=== PATIENT | female | born 1945 | race Caucasian/White ===

== ENCOUNTER 2016-05-06 15:33 | Inpatient (IN) | payer MEDICARE, OTHER, MEDICAID ==
[~2016-05-06] VITALS: Ht 167.6 cm; Wt 81.2 kg
--- NOTE | ~2016-05-06 | PN ---
PATIENT'S NAME: ROLANDO ROJAS [facility] AGE: 70 Y [address] ROOM: [place] [address] LOCATION: [facility] ADMIT DATE: 05/06/2016 Progress Notes DISCHARGE DATE: FAMILY PHYSICIAN: PHYSICIAN, UNKNOWN ATTENDING PHYSICIAN: Killian Ocampo DATE OF SERVICE: 05/13/2016 ADDENDUM: This patient had her thoracentesis uneventfully, approximately 800 mL of serosanguineous fluid was removed from her left chest, and her oxygenation is much better at this point. MD Isidra JEAN /[id number] d: 05/13/16 0611 t: 05/17/16 1826, PROGRESS NOTES
--- NOTE | ~2016-05-06 | PN ---
PATIENT'S NAME: ROLANDO ROJAS [facility] AGE: 70 Y [address] ROOM: [address] [address] LOCATION: GICU ADMIT DATE: 05/06/2016 Progress Notes DISCHARGE DATE: FAMILY PHYSICIAN: PHYSICIAN, UNKNOWN ATTENDING PHYSICIAN: Killian Ocampo DATE OF SERVICE: 05/11/2016 This patient, who had a bowel resection followed by a splenic rupture which was embolized, is doing fairly well. She has a wound infection of MRSA, open wound, on a VAC. She is on no antibiotics. She had speech therapy and was placed on a pureed diet. She is generally doing well. Her laboratory values: Chemistries have been reviewed, and they are reasonable. Her blood count shows a hematocrit of 24.4 and hemoglobin is 7.9. No white count today, and is generally doing satisfactorily. On examination, her abdomen is satisfactory, and she is doing quite well. Hopefully, she will tolerate her pureed diet well and her food management. We have decreased her fluids, and she is remobilizing her third space to her intravascular space. MD TONYA JEAN/deborah /[id number] d: 05/11/16 1237 t: 05/17/16 1821, PROGRESS NOTES
--- NOTE | ~2016-05-06 | PN ---
PATIENT'S NAME: ROLANDO ROJAS [facility] AGE: 70 Y [address] ROOM: [place] [address] LOCATION: [facility] [place] ADMIT DATE: 05/06/2016 Progress Notes DISCHARGE DATE: FAMILY PHYSICIAN: PHYSICIAN, UNKNOWN ATTENDING PHYSICIAN: Killian Ocampo CORRECTED PATIENT ACCOUNT INFORMATION 05/21/16 AO DATE OF SERVICE: 05/18/2016 This patient has tolerated a soft diet. She was transfused as well. Because of her left pleural effusion, Pulmonology was consulted, and attempts x2 at thoracentesis were unsuccessful. She is currently getting a CAT scan to see exactly the process going on in the left chest. MD TONYA JEAN/deborah /[id number] CORRECTED PATIENT ACCOUNT INFORMATION 05/21/16 AO d: t: 05/21/16 1116, PROGRESS NOTES
--- NOTE | ~2016-05-06 | PN ---
PATIENT'S NAME: ROLANDO ROJAS [facility] AGE: 70 Y [address] ROOM: [place] [address] LOCATION: [facility] [place] ADMIT DATE: 05/06/2016 Progress Notes DISCHARGE DATE: FAMILY PHYSICIAN: PHYSICIAN, UNKNOWN ATTENDING PHYSICIAN: Killian Ocampo DATE OF SERVICE: 05/17/2016 This patient is doing reasonably well. She still remains on a pureed diet. She has not required further thoracentesis. A chest x-ray will be checked tomorrow. She still is on a wound VAC and this will be checked. She is on antibiotics. She is being straight cathed twice a day. Her laboratory values and chest x-ray will be checked tomorrow, but she is improving perhaps her diet can be advanced as well. This will be discussed. MD TONYA JEAN/deborah /[id number] d: 05/17/161938 t: 06/26/16 1103, PROGRESS NOTES
--- NOTE | ~2016-05-06 | PN ---
PATIENT'S NAME: ROLANDO ROJAS [facility] AGE: 70 Y [address] ROOM: [place] [address] [place] [facility] [place]: 05/06/2016 Progress Notes DISCHARGE DATE: FAMILY PHYSICIAN: PHYSICIAN, UNKNOWN ATTENDING PHYSICIAN: Killian Ocampo DATE OF SERVICE: 05/17/2016 This patient is doing reasonably well. She still remains on a pureed diet. She has not required further thoracentesis. A chest x-ray will be checked tomorrow. She still is on a wound VAC and this will be checked. She is on antibiotics. She is being straight cathed twice a day. Her laboratory values and chest x-ray will be checked tomorrow, but she is improving perhaps her diet can be advanced as well. This will be discussed. MD TONYA JEAN/deborah /[id number] d: t: 05/20/16 0935, PROGRESS NOTES
--- NOTE | ~2016-05-06 | CON ---
PATIENT'S NAME: ROLANDO ROJAS [facility] AGE: 70 Y [address] ROOM: [place] [address] LOCATION: GICU ADMIT DATE: 05/06/2016 Consultation DISCHARGE DATE: FAMILY PHYSICIAN: PHYSICIAN, UNKNOWN ATTENDING PHYSICIAN: POORNIMA MACDONALD V DATE OF CONSULTATION: 05/06/2016 REFERRING PHYSICIAN: POORNIMA MACDONALD MD REQUESTING PHYSICIAN: Killian Ocampo MD. HISTORY OF PRESENT ILLNESS: The patient is a 70-year-old female who was urgently transferred to [facility] from [place]. The patient has undergone a small-bowel resection and lysis of adhesions on the of this month (4 days ago). Today, she was noted to be acutely hypotensive and anemic. A CAT scan of the abdomen showed a splenic rupture with large amount of bleeding. The patient was transferred to [facility], and en route, developed hemorrhagic shock. Subsequent to the transfer, the patient was evaluated in the ER and was urgently taken to Interventional Radiology where she has undergone a successful embolization of a bleeding splenic vessel. She was transferred to the intensive care unit thereafter. When I evaluated the patient, she again developed hypotension with blood pressures in 70s to 80s systolic over 40s to 50s diastolic. She is complaining of pain and is still quite sedated from the procedure. REVIEW OF SYSTEMS: Cannot be obtained due to altered mental status. I did review chart accompanying the patient. PAST MEDICAL HISTORY: Significant for chronic pain, seizure disorder. SOCIAL HISTORY: Cannot be obtained due to altered mental status. CURRENT MEDICATIONS: Being compiled. FAMILY HISTORY: Cannot be obtained due to altered mental status. PHYSICAL EXAMINATION: PATIENT'S NAME: ROLANDO ROJAS [facility] AGE: 70 Y [address] ROOM: [place] [address] LOCATION: [facility] ADMIT DATE: 05/06/2016 Consultation DISCHARGE DATE: FAMILY PHYSICIAN: PHYSICIAN, UNKNOWN ATTENDING PHYSICIAN: POORNIMA MACDONALD V VITAL SIGNS: After beginning Levophed and normal saline, at this point, her blood pressure is 130s/70s, heart rate is in the 90s, and saturating 100%. GENERAL: Appears as a chronically ill, malnourished, elderly female, in mild distress due to pain. HEENT: Reveals a nasogastric tube. LYMPHATIC: Exam shows no cervical lymphadenopathy. ENDOCRINE: Exam shows no thyromegaly. LUNGS: Clear to auscultation with some trace crackles at the bases bilaterally. HEART: Rate is regular with no appreciable murmurs, gallops, or rubs. GI: Exam reveals a large, dehisced wound in mid abdomen, which is clearly infected. Diminished bowel sounds. VASCULAR: Exam reveals 1+ lower extremity edema and 1+ pedal pulses with some diminished capillary refill. NEUROLOGIC: Grossly nonfocal exam. LABORATORY DATA: Her most recent ABG shows pH 7.32, pCO2 of 44, PO2 of 102, bicarb of 22.7, and saturating 97%. Her potassium is 6.1, calcium 7.2, albumin 1.7, total protein 4.4, and AST 46. White count is 23.3, hemoglobin is 13.8 from 7.5 initially, and she has a 20% bands. IMPRESSION AND RECOMMENDATIONS: This is a critically ill 70-year-old female. Individual problems to be addressed as follows: 1. Hypotension. At this point, we started the patient on Levophed and we will continue hydrating her. We will draw blood cultures. We will monitor her H and H serially to assure that this is not continuation of her hemorrhage versus potential sepsis. 2. Poly-bacterial wound infection as per review of cultures from the outside facility. I think the patient will benefit from broad-spectrum antibiotics as well. We will draw blood cultures as well. 3. Surgical wound dehiscence. We will defer to General Surgery. 4. Goals of care. We will have to address that with the family as I think at this point the prognosis is quite guarded. 5. Questionable history of chronic pain and seizures. 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 6. Pain control has been ordered by Dr. Ocampo. 7. Hyperkalemia: We will insulin and d50 and IVF and follow her potassium Additional management will depend on clinical course. Total time dedicated to the management of this patient is 45 minutes. PATIENT'S NAME: ROLANDO ROJAS [facility] AGE: 70 Y [address] ROOM: [place] [address] LOCATION: [facility] ADMIT DATE: 05/06/2016 Consultation DISCHARGE DATE: FAMILY PHYSICIAN: PHYSICIAN, YULIYA ATTENDING PHYSICIAN: POORNIMA MACDONALD V MD TAZ HE/deborah /[id number] d: 05/07/16 0043 t: 05/13/16 1915, CONSULTATION REPORT
--- NOTE | ~2016-05-06 | OR ---
PATIENT'S NAME: ROLANDO ROJAS [facility] AGE: 70 Y [address] ROOM: [address] [address] [place] [facility] [place]: 05/06/2016 OR/Procedure Report DISCHARGE DATE: FAMILY PHYSICIAN: PHYSICIAN, UNKNOWN ATTENDING PHYSICIAN: Killian Ocampo SURGEON: Jose Knapp MD MANAGEMENT LEAD: DATE OF PROCEDURE: 05/06/2016 CORRECTED PATIENT ACCOUNT INFORMATION 05/21/16 PROCEDURE PERFORMED: Insertion of a right internal jugular venous catheter. PREPROCEDURE DIAGNOSES: 1. Splenic rupture. 2. Hypovolemic shock. 3. Inadequate venous access. POSTPROCEDURE DIAGNOSES: 1. Splenic rupture. 2. Hypovolemic shock. 3. Inadequate venous access. DESCRIPTION OF PROCEDURE: The patient is a 70-year-old female who was admitted to our facility in hypovolemic shock secondary to a ruptured spleen. The patient had poor intravenous access. In order to facilitate adequate resuscitation, additional intravenous access is required. The patient was placed in a slight Trendelenburg position with her head turned to the left. A Site-Rite monitor was used to identify the course of the right internal jugular vein. After appropriate skin markings were made, the skin was prepped and draped in the usual sterile fashion using full barrier precautions. An 18-gauge seeker needle was then used to cannulate the right internal jugular vein on the first attempt. A guidewire was introduced through the needle, and the needle removed. After creation of the small stab incision, a dilator was passed over the guidewire, which was then followed by the passage of a 16 cm, 8.5-Nepali, 4-lumen catheter. The catheter was inserted to the depth of its hub and the guidewire removed. The lumens of the catheter were capped and flushed. The catheter was sutured into place, and a sterile dressing applied. The patient tolerated the procedure well. JOSE KNAPP MD MWS/modl PATIENT'S NAME: ROLANDO ROJAS [facility] AGE: 70 Y [address] ROOM: [id number] [place], [place] [address] [place] [facility] [place]: 05/06/2016 OR/Procedure Report DISCHARGE DATE: FAMILY PHYSICIAN: PHYSICIAN, YULIYA ATTENDING PHYSICIAN: Killian Ocampo /[id number] CORRECTED PATIENT ACCOUNT INFORMATION 05/21/16o d: 05/07/16 1623 t: 05/30/16 1045, OPERATIVE SUMMARY
--- NOTE | ~2016-05-06 | PN ---
PATIENT'S NAME: ROLANDO ROJAS [facility] AGE: 70 Y [address] ROOM: [place] [address] LOCATION: GICU ADMIT DATE: 05/06/2016 Progress Notes DISCHARGE DATE: FAMILY PHYSICIAN: PHYSICIAN, UNKNOWN ATTENDING PHYSICIAN: Killian Ocampo DATE OF SERVICE: 05/11/2016 This is a patient who had a small bowel resection followed by embolization for a splenic rupture. She currently is doing reasonably well. She does have a wound infection of MRSA, on her back DICTATION ENDS HERE MD TONYA JEAN/deborah /[id number] d: 05/11/16 1110 t: 05/17/16 1818, PROGRESS NOTES
--- NOTE | ~2016-05-06 | PN ---
PATIENT'S NAME: ROLANDO ROJAS [facility] AGE: 70 Y [address] ROOM: [place] [address] LOCATION: [place] ADMIT DATE: 05/06/2016 Progress Notes DISCHARGE DATE: FAMILY PHYSICIAN: PHYSICIAN, UNKNOWN ATTENDING PHYSICIAN: Killian Ocampo DATE OF SERVICE: 06/02/2016 This patient is doing reasonably well. She did have a low-grade fever. She still has a leukocytosis, low-grade. Her chest tube on suction is draining a modest amount. Determination will be made by Dr. Osman about this. A chest x-ray was taken, which has been reviewed, is very similar. Her wound VAC will be changed tomorrow. I hope to look at that. She is on no antibiotics. She still has MRSA screening and is reasonably stable, although she did have some more abdominal pain yesterday. MD TONYA JEAN/deborah /[id number] d: 06/02/16 0845 t: 06/26/16 1120, PROGRESS NOTES
--- NOTE | ~2016-05-06 | CON ---
PATIENT'S NAME: ROLANDO ROJAS [facility] AGE: 70 Y [address] ROOM: [address] [address] [place] [facility] [place] ADMIT DATE: 05/06/2016 Consultation DISCHARGE DATE: FAMILY PHYSICIAN: PHYSICIAN, UNKNOWN ATTENDING PHYSICIAN: Killian Ocampo DATE OF CONSULTATION: 06/05/2016 REFERRING PHYSICIAN: POORNIMA MACDONALD MD CARDIOLOGY CONSULT REASON FOR CARDIOLOGY CONSULTATION: Atrial fibrillation. HISTORY OF PRESENT ILLNESS: This is a 70-year-old female, who initially presented to [facility] from [place], [place] with hemorrhagic shock. She underwent a small-bowel resection, is currently postop day greater than 30 from that visit. She experienced hemorrhage from a splenic rupture and is currently status post an embolization. During her hospitalization, she also developed a pleural effusion followed by a failed thoracentesis and then left hemithorax which needed left thoracoscopy and pleural effusion drainage by chest tube. She is currently being treated for sepsis secondary to UTI by the Hospitalist Service. 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 Her rates are marginally controlled in the 80 to 90 beats per minute range. She does have a previous history of paroxysmal atrial fibrillation and was also previously on Eliquis. Her normal perl programmer is Dr. Fahad Morin at [facility] and states she saw him in February 2016. She does have complaints of palpitations and dizziness. She denies chest pain or shortness of breath. She also denies nausea or vomiting, but she does admit to occasional dry heaves. Overall, she appears comfortable in her chair and in no acute distress. PAST MEDICAL HISTORY: The patient is unsure of her full medical history. The following list of history is from chart review which includes hypertension, pulmonary embolus, paroxysmal atrial fibrillation, incontinence, and seizure disorder. PAST SURGICAL HISTORY: Her chart review shows a past surgical history including a vaginal mesh, right knee replacement, cholecystectomy, and hysterectomy. FAMILY HISTORY: The patient is unsure of any notable family health history. PATIENT'S NAME: ROLANDO ROJAS [facility] AGE: 70 Y [address] ROOM: [address] [address] LOC[place] [facility] [place] ADMIT DATE: 05/06/2016 Consultation DISCHARGE DATE: FAMILY PHYSICIAN: PHYSICIAN, UNKNOWN ATTENDING PHYSICIAN: Killian Ocampo SOCIAL HISTORY: The patient denies ever using tobacco. She also denies alcohol or illicit drug use. CURRENT MEDICATIONS: 1. Zosyn 3.375 g IV every 8 hours. 2. Bystolic 5 mg p.o. daily. 3. Amiodarone 200 mg p.o. daily. 4. Florastor 250 mg p.o. twice daily. 5. Keppra 500 mg p.o. twice daily. 6. Levothyroxine 50 mcg p.o. daily. 7. Neurontin 300 mg p.o. twice daily. 8. Protonix 40 mg p.o. twice daily. 9. Remeron 15 mg p.o. daily in the evening. 10. Sanctura 20 mg p.o. daily. 11. Heparin 5000 units subcutaneous twice daily. 12. NovoLog subcu on a mild sliding scale per a.c. and h.s. Accu-Cheks. MEDICATION ALLERGIES: 1. Barbiturates. 2. Sulfa causing nausea. 3. Phenobarbital causing rash. 4. Morphine causing anaphylaxis. REVIEW OF SYSTEMS: Pertinent positive review of systems listed in HPI. All other review of systems evaluated and negative. PHYSICAL EXAMINATION: VITAL SIGNS: Temperature 98.9, pulse 98, respirations 20, blood pressure 96/62, and O2 saturation 98% on room air. The patient weighs 81.1 kg. SKIN: [place], warm, and dry. EYES: Sclerae clear. No xanthelasmas. ENT: Oral mucosa is pink and moist. No jugular venous distention. No carotid bruits. CHEST: Respirations are even and unlabored. Lung sounds are clear to bilateral upper lobes. They are diminished to bilateral lower lobes. HEART: Irregular rate and rhythm. Normal S1, S2. No murmurs, rubs, or gallops. ABDOMEN: Soft nontender. MUSCULOSKELETAL: Equal muscle strength to upper and lower extremities bilaterally against resistance. EXTREMITIES: Peripheral pulses palpable. No clubbing or cyanosis noted. Does have mild lower extremity edema present. PSYCH: Alert and oriented. Mood and affect are appropriate. PATIENT'S NAME: ROLANDO ROJAS [facility] AGE: 70 Y [address] ROOM: [place] [address] LOC[place]: [facility] [place] ADMIT DATE: 05/06/2016 Consultation DISCHARGE DATE: FAMILY PHYSICIAN: PHYSICIAN, UNKNOWN ATTENDING PHYSICIAN: Killian Ocampo IMPRESSION AND PLAN: Per Dr. Jacque Coronado: 1. Paroxysmal atrial fibrillation. The patient is currently in atrial fibrillation. She has a previous history of anticoagulation with Eliquis, but we will not restart her anticoagulation due to her acute blood loss anemia. We will try and retrieve her old cardiac records from Dr. Fahad Morin's office for a full review. 2. Loculated pleural effusion. 3. Status post bowel resection. 4. Splenic hemorrhage, status post embolization. 5. Sepsis secondary to urinary tract infection, currently under the care of the Hospitalist Service. 6. Moderate pulmonary hypertension with an RVSP of 46 mmHg. The patient's echocardiogram shows a left ventricular ejection fraction of 60%. Her EKG shows atrial fibrillation with a right bundle-branch block. Her atrial fibrillation rates are currently well controlled, and once again, we will not start her on anticoagulation due to anemia and acute blood loss anemia. No other active cardiac workup necessary at this time. We will review her previous cardiac records and continue to monitor, evaluate, and treat as appropriate. Thank you for this consult. Thank you for allowing [facility] to interact in the care of the patient. MADELIN RESENDIZ APRN FOR MD KIM SIMS/deborah /[id number] d: 06/06/16 0010 t: 06/10/16 1132, CONSULTATION REPORT
--- NOTE | ~2016-05-06 | PN ---
PATIENT'S NAME: ROLANDO ROJAS [facility] AGE: 70 Y [address] ROOM: [address] [address] [place] [facility] [place]: 05/06/2016 Progress Notes DISCHARGE DATE: FAMILY PHYSICIAN: PHYSICIAN, UNKNOWN ATTENDING PHYSICIAN: Killian Ocampo DATE OF SERVICE: 05/18/2016 This patient is doing reasonably well. She still has MRSA, still on a wound VAC. She is being straight cathed b.i.d. She is on Maxipime. I checked her chest x-ray, which showed a record essence of fluid in her left chest and the cat operator will re-evaluate this. Her pulse oximetries have been reasonable. She has been on 1-2 L per nasal cannula, but I want to see what the cat operator to see if she needs another thoracentesis. Also, she has been doing well with a pureed diet, but it is not very palatable, and I have asked the speech therapist to see if she could be advanced, and indeed, they are comfortable with this and she is going to be advanced to a surgical soft diet. Her wound VAC is not putting out much, it is 125 and she has been afebrile. Her laboratory values are reasonable in terms of her chemistries. Her white count is 13.5, her hemoglobin is 7.7, in that respect and I am going to give her unit of blood, followed by unloading with Lasix. She has a mild leukocytosis which will be watched, so therefore advance her to a soft diet, transfuse 1 unit of blood, and have the cat operator re-evaluate in terms of her left pleural effusion. MD TONYA JEAN/deborah /[id number] d: 05/18/16 1102 t: 06/26/16 1105, PROGRESS NOTES
--- NOTE | ~2016-05-06 | OR ---
PATIENT'S NAME: ROLANDO ROJAS [facility] AGE: 70 Y [address] ROOM: [address] [place], [place] [address] LOCATION: GICU ADMIT DATE: 05/06/2016 OR/Procedure Report DISCHARGE DATE: FAMILY PHYSICIAN: PHYSICIAN, UNKNOWN ATTENDING PHYSICIAN: Killian Ocampo SURGEON: Manuel Spicer MD CHECKOUT OPERATOR: DATE OF PROCEDURE: 05/06/2016 ADDENDUM: This is an addendum to the anesthesia record. The patient is a 70- year-old female who was transferred from [place], [place], with a diagnosis of a ruptured spleen. In transport from [place], the patient's systolic blood pressures were in the 50s. On arrival to the emergency room, the patient was found to be hypotensive and pale, but conscious and complaining of pain. The patient did have a small-bore right subclavian catheter present through which blood was being given. Efforts were made at that point in time to increase the rate of blood and fluid administration. Thus, a Level 1 transfuser was employed. With vigorous packed red blood cell administration, the patient did finally obtain an adequate mean arterial pressure. The patient remained conscious during this time, complaining of pain. The decision was made at that time, given her history of having had a recent bowel resection, that an attempt should be made at interventional radiologic therapy as opposed to going to the operating room for an open procedure. Given the difficulty we were having in resuscitating the patient through the lines that were present, however, we decided to take the patient initially to the operating room for placement of adequate lines and stabilization. The patient was subsequently transferred to the operating room, and a right internal jugular vein catheter placed as well as a left radial arterial line. Once an adequate blood pressure was assured, the patient was transferred to the interventional radiology suite where she was to undergo splenic infarction by Dr. Srikanth Pennington. The patient maintained relatively stable vital signs with the administration of fluid and packed red cells and generated enough blood pressure to permit the administration of analgesics. During the course of her procedure, the patient was given 25 mg of ketamine as well as 75 mg of fentanyl. Due to the degree of her metabolic acidosis, she was also treated with 50 mL of 8.4% sodium bicarbonate. The patient tolerated the radiologic procedure well, and at the successful completion of the procedure, the patient was transferred to the intensive care unit. During the course of her resuscitation and the interventional radiologic procedure, the patient received 6 units of emergency-released packed red blood cells as well as approximately 1500 mL of crystalloid. The drugs administered are as noted above. The patient was transferred to the care of the intensive care unit with a blood pressure of 115/75 and a heart rate of 82. She was conscious and much more comfortable than she had been on her arrival. The time spent with PATIENT'S NAME: ROLANDO ROJAS [facility] AGE: 70 Y [address] ROOM: [place] [address] LOCATION: [facility] ADMIT DATE: 05/06/2016 OR/Procedure Report DISCHARGE DATE: FAMILY PHYSICIAN: PHYSICIAN, UNKNOWN ATTENDING PHYSICIAN: Killian Ocampo the patient was from 1535 hours to 1813 hours. Vital signs are in the chart for review. MD GUERITA FERRER/deborah /[id number] d: 05/07/165 t: 05/09/16 1514, OPERATIVE SUMMARY
--- NOTE | ~2016-05-06 | PN ---
PATIENT'S NAME: ROLANDO ROJAS [facility] AGE: 70 Y [address] ROOM: [place] [address] [place] [facility] [place]: 05/06/2016 Progress Notes DISCHARGE DATE: FAMILY PHYSICIAN: PHYSICIAN, UNKNOWN ATTENDING PHYSICIAN: Killian Ocampo DATE OF SERVICE: 05/19/2016 This patient is doing fair. Her biggest problem is with her pleural effusion of the left chest. She has a low-grade fever. Chest x-ray done yesterday showed fluid in the left chest. The tie in machine operator attempted to do thoracentesis x2 and only got blood. CT scan of her chest was taken, which showed a large left pleural effusion increased in volume with consolidation and a small right pleural effusion also. There is no pneumothorax, but there is a mild midline shift to the right. She does have residual fluid around her spleen secondary to her splenic rupture treated by embolization. Her pulse oximetries have varied, but have been better than before but not always consistent. She is tolerating her soft diet. She does not have a great appetite. She was transfused as well. Her laboratory data pending at this time. After the transfusion, major concern is her pulmonary issue. I have asked, Dr. Osman, the cardiothoracic surgeon, to evaluate her left chest for his opinion and also I have asked radiology for their opinion if they could guide a thoracentesis catheter into her left pleural space for adequate drainage, this seems to be her major concern at this time. MD TONYA JEAN/deborah /[id number] d: t: 05/20/16 1124, PROGRESS NOTES
--- NOTE | ~2016-05-06 | ER ---
PATIENT'S NAME: ROLANDO ROJAS [facility] AGE: 70 Y [address] ROOM: [address] [address] LOCATION: [facility] ADMIT DATE: 05/06/2016 ER/Outpatient Report DISCHARGE DATE: FAMILY PHYSICIAN: PHYSICIAN, UNKNOWN ATTENDING PHYSICIAN: POORNIMA MACDONALD V Time of Arrival: 1536 hours. Time of Evaluation: 1536 hours. IDENTIFICATION: A 70-year-old female. CHIEF COMPLAINT: Spontaneous spleen rupture. HISTORY OF PRESENT ILLNESS: The patient is a 70-year-old female, who was to be direct admitted to ICU per Dr. Ocampo and Dr. Macdonald. The patient actually was hemodynamically unstable with pressures in the 50s during flight, so Dr. Ocampo wanted her to be brought to the emergency room. Dr. Spicer also was present. The patient is a 70-year-old female, status post colon resection, I believe, on the in [place] per Dr. Ocampo who had been recovering nicely until today, she developed abdominal pain and just did not feel right. She had hypotension, which only worsened. The CT scan revealed a spontaneous rupture of her spleen, so then they did contact Dr. Ocampo and she was to be admitted by Dr. Ocampo. ALLERGIES: UNKNOWN. CURRENT MEDICATIONS: Reviewed. Please refer to the MAR. We did call to verify that she has not been taking her Eliquis since the April 26, 2016. MEDICAL PROBLEMS: I really do not have access to all of her medical records, but she is on chronic anticoagulation. At this time, I am not able to really tell what she takes that for. I briefly evaluated the patient with Dr. Spicer and Dr. Ocampo. Blood pressures varied between a mean of 65 and a blood pressure of 111. Most of the time, we only had a mean and no active blood pressure. The patient is moaning and complaining of abdominal pain. She is somewhat short of breath, but her sats are 99% on 4 L per nasal cannula. Heart rate is in the 80s. ABDOMEN: Distended. Retention sutures are in place. LUNGS: Diminished in the bases. PATIENT'S NAME: ROLANDO ROJAS [facility] AGE: 70 Y [address] ROOM: [address] [address] LOCATION: [facility] ADMIT DATE: 05/06/2016 ER/Outpatient Report DISCHARGE DATE: FAMILY PHYSICIAN: PHYSICIAN, UNKNOWN ATTENDING PHYSICIAN: POORNIMA MACDONALD V LABORATORY DATA: Lab work was obtained to include a hemoglobin of 7.5, hematocrit 23.2, platelets 229. She had a hemoglobin of 9.1 at 10:30 a.m. and hemoglobin of 10 at 3:30 a.m. Massive transfusion protocol was ordered immediately on arrival of the patient. 4 units of emergency packed red blood cells were available in the trauma room. The patient was on her third unit of packed red blood cells on 3 L of normal saline. I did order tranexamic acid with the massive transfusion protocol, Dr. Spicer though withheld that at that time it did arrive. INR 1.1, fibrinogen 296, PTT 34. PLAN: After a brief stabilization in the trauma room, the decision was made to go to the operating room for arterial lines per Dr. Spicer and then to Interventional Radiology for Dr. Srikanth Pennington. The patient remained in very guarded condition, but was hemodynamically improved when transferred from the trauma room. The patient arrived to the emergency room at 1536 hours and departed the emergency room at 1614 hours. 30 minutes of critical care was provided with this patient. YENNY BOCANEGRA MD CAR/modl /[id number] d: 05/07/16 0044 t: 05/07/16 0923, OUTPATIENT REPORT
--- NOTE | ~2016-05-06 | PN ---
PATIENT'S NAME: ROLANDO ROJAS [facility] AGE: 70 Y [address] ROOM: [place] [address] LOCATION: [facility] [place] ADMIT DATE: 05/06/2016 Progress Notes DISCHARGE DATE: FAMILY PHYSICIAN: PHYSICIAN, UNKNOWN ATTENDING PHYSICIAN: Killian Ocampo DATE OF SERVICE: 05/31/2016 This patient remains with MRSA, has a wound VAC in. She had a thoracoscopy and has a chest tube in now to suction. It is not draining a great deal. She is tolerating her diet, but she has had watery diarrhea. Her last C diff was negative, and another one was ordered. A chest x-ray taken today shows consolidation in the left lower pleural space. She will continue to be treated as such. Hopefully, soon, that chest tube can be removed. MD TONYA JEAN/deborah /[id number] d: 05/31/16 1847 t: 06/26/16 1115, PROGRESS NOTES
--- NOTE | ~2016-05-06 | PN ---
PATIENT'S NAME: ROLANDO ROJAS [facility] AGE: 70 Y [address] ROOM: [address] [address] [place] [facility] [place]: 05/06/2016 Progress Notes DISCHARGE DATE: FAMILY PHYSICIAN: PHYSICIAN, UNKNOWN ATTENDING PHYSICIAN: Killian Ocampo DATE OF SERVICE: 06/01/2016 This patient is doing reasonably well. Her diarrhea has decreased a bit. Her chest tube drainage has been modest. This will be evaluated by Dr. Osman. I have reviewed her chest x-ray from yesterday which showed some consolidation in the left chest. Her examination is stable. Her wound VAC is decreasing in amount. I hope to observe that when it gets changed. Her laboratory values have been reviewed. She has a slight leukocytosis. MD TONYA JEAN/deborah /[id number] d: 06/01/16 0810 t: 06/26/16 1118, PROGRESS NOTES
--- NOTE | ~2016-05-06 | PN ---
PATIENT'S NAME: ROLANDO ROJAS [facility] AGE: 70 Y [address] ROOM: [id number] [address] LOCATION: [facility] ADMIT DATE: 05/06/2016 Progress Notes DISCHARGE DATE: FAMILY PHYSICIAN: PHYSICIAN, UNKNOWN ATTENDING PHYSICIAN: Killian Ocampo DATE OF SERVICE: 05/12/2016 HISTORY OF PRESENT ILLNESS: This is a patient who had a bowel resection at another institution. She came here with a ruptured spleen, which was embolized. She has MRSA wound infection with superficial opening of her wound on a VAC. She is on no antibiotics. She did have a problem with fluid overload in which she is diuresing well. She had a speech evaluation and now is on a pureed diet. She generally is doing well. LABORATORY VALUES: Show slight hypokalemia probably secondary to diuresis. She has no azotemia. Her white count is normal. Her hemoglobin is a tad low in the high 7s, that will need to be watched. She may require transfusion. Platelet count is generally satisfactory. REVIEW OF SYSTEMS: Remainder of the review of systems are surgically noncontributory. PHYSICAL EXAMINATION: VITAL SIGNS: Afebrile. Vital signs stable. GENERAL: Color good and comfortable. CHEST: Clear. ABDOMEN: Soft. Good bowel sounds. Wound VAC in place. This will be changed tomorrow. PLAN: Watch her H and H, supplement her potassium, if it goes any lower. Continue with pureed diet and possibly increase and check her wound when the VAC comes off tomorrow. MD TONYA JEAN/deborah /[id number] d: 05/12/167 t: 05/17/16 1823, PROGRESS NOTES
--- NOTE | ~2016-05-06 | PN ---
PATIENT'S NAME: ROLANDO ROJAS [facility] AGE: 70 Y [address] ROOM: [place] [address] [place] [facility] [place]: 05/06/2016 Progress Notes DISCHARGE DATE: FAMILY PHYSICIAN: PHYSICIAN, UNKNOWN ATTENDING PHYSICIAN: Killian Ocampo CORRECTED PATIENT ACCOUNT INFORMATION 05/21/16 AO DATE OF SERVICE: 05/18/2016 This patient has tolerated a soft diet. She was transfused as well. Because of her left pleural effusion, Pulmonology was consulted, and attempts x2 at thoracentesis were unsuccessful. She is currently getting a CAT scan to see exactly the process going on in the left chest. MD TONYA JEAN/deborah /[id number] CORRECTED PATIENT ACCOUNT INFORMATION 05/21/16 AO d: 05/18/161811 t: 06/26/16 1111, PROGRESS NOTES
--- NOTE | ~2016-05-06 | PN ---
PATIENT'S NAME: ROLANDO ROJAS [facility] AGE: 70 Y [address] ROOM: [address] [address] [place] [facility] [place] DATE: 05/06/2016 Progress Notes DISCHARGE DATE: FAMILY PHYSICIAN: PHYSICIAN, UNKNOWN ATTENDING PHYSICIAN: Killian Ocampo DATE OF SERVICE: 05/18/2016 This patient is doing reasonably well. She still has MRSA, still on a wound VAC. She is being straight cathed b.i.d. She is on Maxipime. I checked her chest x-ray, which showed a record essence of fluid in her left chest and the head scorer will re-evaluate this. Her pulse oximetries have been reasonable. She has been on 1-2 L per nasal cannula, but I want to see what the head scorer to see if she needs another thoracentesis. Also, she has been doing well with a pureed diet, but it is not very palatable, and I have asked the speech therapist to see if she could be advanced, and indeed, they are comfortable with this and she is going to be advanced to a surgical soft diet. Her wound VAC is not putting out much, it is 125 and she has been afebrile. Her laboratory values are reasonable in terms of her chemistries. Her white count is 13.5, her hemoglobin is 7.7, in that respect and I am going to give her unit of blood, followed by unloading with Lasix. She has a mild leukocytosis which will be watched, so therefore advance her to a soft diet, transfuse 1 unit of blood, and have the head scorer re-evaluate in terms of her left pleural effusion. MD TONYA JEAN/deborah /[id number] d: t: 05/20/16 0955, PROGRESS NOTES
--- NOTE | ~2016-05-06 | DS ---
PATIENT'S NAME: ROLANDO ROJAS [facility] AGE: 70 Y [address] ROOM: [place] [address] [place]ATION: [facility] [place] ADMIT DATE: 05/06/2016 Discharge Summary DISCHARGE DATE: 06/07/2016 FAMILY PHYSICIAN: Physician, Unknown ATTENDING PHYSICIAN: Killian Ocampo DISCHARGE DIAGNOSES: 1. Hemorrhagic shock. 2. Sepsis, Klebsiella urinary tract infection. 3. MRSA in abdominal wound. 4. Splenic rupture, status post embolization. 5. Open abdominal wound with wound VAC. 6. Acute blood loss anemia. 7. Hypokalemia. 8. Paroxysmal atrial fibrillation with episode of atrial fibrillation with rapid ventricular response. 9. Physical deconditioning. 10. Long-term anticoagulation. 11. Acute hypoxic respiratory failure. 12. Left pleural effusion, status post chest tube. 13. Left lower lobe pneumonia. 14. Generalized weakness. 15. Diarrhea, Clostridium difficile negative. HOSPITAL COURSE: Please refer to interim discharge summary as dictated by Cassie James on 05/27/2016. Briefly, this discharge summary will cover the events from 05/27/2016 until the day of discharge on 06/07/2016. The patient continued to progress with physical therapy and occupational therapy. She was noted to have diarrhea. Her stool softeners were held. Her C. diff was checked twice, both of which were negative. She had been started on colchicine after placement of her chest tube. This was discontinued because of her severe diarrhea. She was weaned off her oxygen and encouraged to continue her flutter valve and incentive spirometry. She did have bouts of nausea intermittently. Her Ensure was stopped as this did seem to also aggravate it. It was recommended that she have a dose of Zofran with pain meds and 1 hour prior to dressing changes of her abdominal wound, this did seem to help. She was started on Remeron at bedtime for appetite stimulation and it was increased, this did seem to help her appetite as she was taking in much better p.o. prior to her discharge. Her hemoglobin remained stable. She was on probiotic for her diarrhea. She was tolerating a regular diet. She was noted to have hypokalemia. She did have replacement of her potassium, both p.o. and IV intermittently throughout her stay. On 06/03, she did spike a fever of 101.8. Blood cultures were done, which did show no growth to date. Urine culture was performed, which did grow Klebsiella. At the time of her fever, she was also hypotensive. She was given a saline bolus. CT of her PATIENT'S NAME: ROLANDO ROJAS [facility] AGE: 70 Y [address] ROOM: [place] [address] LOCATION: [facility] [place] ADMIT DATE: 05/06/2016 Discharge Summary DISCHARGE DATE: 06/07/2016 FAMILY PHYSICIAN: Physician, Unknown ATTENDING PHYSICIAN: Killian Ocampo abdomen and pelvis was done with contrast to rule out abscess. No abscess was seen. It was recommended that she continue her wound VAC. Her wound was cultured at that time, which did grow MRSA. On 06/05, she had some noted tachycardia. EKG showed that she was in AFib with RVR. Cardiac enzymes were drawn and were troponin 0.109, CK-MB 1.3, CPK 23. Her magnesium was shown to be 1.4, TSH 5.780. Her amiodarone had been held due to hypotension, this was resumed as well as her beta-bertrand. Vancomycin was resumed for MRSA growing in her abdomen as well as Zosyn. Her urine culture grew Klebsiella, greater than 100,000. She was started on Rocephin 1 g IV daily for 5 days and doxycycline 100 mg p.o. b.i.d. for 7 days. She had no further fevers. Her heart rate did stabilize. On 06/06/2016, she was restarted on her home Eliquis 5 mg p.o. b.i.d., it was recommended that she continue to monitor her hemoglobin. Cardiology did follow along. They felt as though her troponin was very minimally elevated, it was likely secondary to her anemia and AFib. They recommended further followup with her primary care loan teller in 2 weeks. Her chest tube was discontinued on 06/03/2016. Her followup chest x- ray did show a loculated pleural effusion as well as some consolidation, it was recommended follow up with serial chest x-rays. It was recommended that the patient have a chest x-ray at the time of discharge in 1 week with those to be pushed to [facility] for Dr. Osman to review. They should call Yarelis PENA when that chest x-ray is performed. On 06/07/2016, the patient was afebrile. Her vital signs were stable. It was felt as though she was stable to be transferred to the [facility]. She should follow up with Dr. Morin, her loan teller in [address] Cota in [place] in 7 to 10 days and x-ray in 1 week. I did call and discuss the case with Vu Wen PA-C, prior to the patient's discharge. LABORATORY DATA: Sodium was mildly elevated at 146 on the day of discharge, otherwise had been noted to be stable. Potassium ranged from 3.3 to 3.7, calcium 7.6, BUN 11 to 23, creatinine 0.6 to 0.8, AST 20, ALT less than 10, GFR remained greater than 60. Magnesium 1.4 on June 05, prior to discharge 2.1. CPK 23, CK-MB 1.3, troponin 0.109, prealbumin 11. Free T4 of 1.6, TSH 5.780. WBCs, they did spike as high as 13.5 on June 01 and then trended downward on the day of discharge to 7.3; hemoglobin 8.7 to 10.0; hematocrit 27.4 to 32.7. UA done on June 04 did show leukocytes 500, nitrites positive, protein 100, blood 250, wbc's packed field, bacteria many, yeast many. RADIOLOGY REPORTS: CT of the abdomen and pelvis done on 06/04/2016 did show moderate volume residual blood and irrigation fluid in the abdomen and pelvis, postop changes of the small bowel surgery with patent anastomosis, scattered air-fluid levels, past spleen embolization with residual hematoma and small volume of residual perfuse splenic tissue present, small volume of pleural fluid in the lower left and right hemithorax, large area of dense consolidation in the left base consistent with infiltrate and atelectasis with PATIENT'S NAME: ROLANDO ROJAS [facility] AGE: 70 Y [address] ROOM: [address] [address] LOCATION: [facility] [place] ADMIT DATE: 05/06/2016 Discharge Summary DISCHARGE DATE: 06/07/2016 FAMILY PHYSICIAN: Physician, Unknown ATTENDING PHYSICIAN: Killian Ocampo small area of compressive atelectasis or infiltrate at the posterior right lung base. DISCHARGE INSTRUCTIONS: 1. The patient will be discharged to the [facility]; Vu Wen PA-C to follow. Follow up with Dr. Morin, Cardiology in 2 weeks. Follow up with Dr. Cota in [place], 7 to 10 days. 2. Obtain AP and lateral chest x-rays in 1 week, push results to [facility]. Call Yarelis Smiley APRN at for Dr. Osman to review. 3. Code status: Full. 4. Diet: Regular. 5. Weightbearing as tolerated with assistance. PT and OT to evaluate and treat as indicated. Oxygen as needed to keep saturations greater than 90%. CBC on 06/08/2016 and 06/09/2016. BMP 06/08/2016 and 06/09/2016. Results to be faxed to Vu Wen PA-C. [facility] nurses to continue to follow. See [facility] notes as sent in the packet to [place]. Leave chest tube site open to air. Urinary catheter is in place for urinary retention. REHAB POTENTIAL: Good. DISCHARGE POTENTIAL: Good. DISCHARGE MEDICATIONS: 1. Rocephin 1 g IV daily, discontinue after 06/11/2016 dose given. 2. Amiodarone 200 mg p.o. daily. 3. Eliquis 5 mg p.o. b.i.d. 4. Doxycycline 100 mg p.o. twice daily. Stop after 06/12/2016 dose. 5. Neurontin 300 mg p.o. twice daily. 6. Keppra 500 mg p.o. twice daily. 7. Synthroid 50 mcg p.o. daily. 8. Remeron 15 mg p.o. at bedtime. 9. Bystolic 5 mg p.o. daily, hold if systolic blood pressure is less than 110. 10. Protonix 40 mg p.o. twice daily. 11. Florastor 250 mg p.o. twice daily. 12. Tylenol 650 mg every 4 hours as needed for pain. 13. [place] 1 tablet p.o. every 2 hours as needed for pain. 14. Lomotil 1 tablet p.o. after each loose stool p.r.n. diarrhea. 15. Zofran 4 mg IV prior to wound VAC change. 16. Calcium with vitamin D 1 tablet p.o. 3 times a day. 17. Oxybutynin 5 mg p.o. daily. Thank you for allowing us to participate in the care of this patient as she PATIENT'S NAME: ROLANDO ROJAS [facility] AGE: 70 Y [address] ROOM: [place] [address] LOCATION: [facility] [place] ADMIT DATE: 05/06/2016 Discharge Summary DISCHARGE DATE: 06/07/2016 FAMILY PHYSICIAN: Physician, Unknown ATTENDING PHYSICIAN: Killian Ocampo has been hospitalized at [facility]. Time spent at the bedside as well as coordinating care, 40 minutes. ELIZABETH HOUSTON APRN FOR MD DAVID DUKES/deborah /[id number] d: 06/08/16616 t: 06/16/16 1507, DISCHARGE SUMMARY
--- NOTE | ~2016-05-06 | PN ---
PATIENT'S NAME: SINDHU ALCAZAR [facility] AGE: 70 Y [address] ROOM: [place] [address] LOCATION: [facility] [place] ADMIT DATE: 05/06/2016 Progress Notes DISCHARGE DATE: FAMILY PHYSICIAN: PHYSICIAN, UNKNOWN ATTENDING PHYSICIAN: Killian Ocampo DATE OF SERVICE: 05/27/2016 INTERNAL SUMMARY DIAGNOSES: 1. Status post exploratory laparotomy with small bowel resection for small bowel obstruction done in [place] on approximately April 26. 2. Abdominal wound infection, status post opening of the incision with retention sutures in place, again done in [place] prior to admission. 3. Spontaneous rupture of the spleen with hypotension and acute blood loss anemia, status post embolization on May 06, 2016. 4. Hypertension. 5. Left pleural effusion with thoracentesis done on May 12 with 800 mL out, unsuccessful thoracentesis on May 18 and left thoracoscopy by Dr. Osman on May 19. 6. Left lower lung pneumonia. 7. Acute hypoxic respiratory failure, resolved. SUMMARY: Sindhu Alcazar is a 70-year-old female, who presented in [place] on April 26 and was found to have a small bowel obstruction. The patient underwent an operation that required a small bowel resection. The patient was improving. On the morning of May 06, the patient was up and had a syncopal episode. She was found to have hypotension followed by abdominal pain. A CT scan was performed and revealed spontaneous rupture of the spleen. She was on Lovenox. It was unclear whether she was still on Eliquis or not. The patient was transferred emergently to [facility] for further evaluation. The patient was immediately taken from the ER to the OR to be stabilized. Once appropriate lines were in place including central line and arterial line and the patient received blood, she was transferred to the CT suite for embolization of her spleen with Dr. Pennington. Following that, she was admitted to the intensive care unit, where she was kept n.p.o. and an NG tube was placed to suction. Her abdominal wound was noted to be open with retention sutures in place. A wet-to-dry dressing was ordered. She was kept at bed rest. PT and OT were ordered. Hospitalist was consulted for medical management. They subsequently started antibiotics empirically. The patient's hemoglobin on arrival was 7.5, but increased to 13.8 after transfusion. On May 07, the patient's hemoglobin had dropped from 13.8 down to 10.1 and later in the day 8.0. Her white blood cell count was 24.3. Vancomycin was PATIENT'S NAME: SINDHU ALCAZAR [facility] AGE: 70 Y [address] ROOM: [place] [address] LOCATION: [facility] [place] ADMIT DATE: 05/06/2016 Progress Notes DISCHARGE DATE: FAMILY PHYSICIAN: PHYSICIAN, UNKNOWN ATTENDING PHYSICIAN: Killian Ocampo discontinued, and Zyvox and Zosyn were initiated. A 1 unit of packed red blood cells was transfused due to the drop in hemoglobin along with some hypotension. Her hemoglobin was 8.1 on May 08. On May 09, a wound VAC was placed on the abdominal wound. Her IV antibiotics were discontinued and NG tube was removed. On May 10, hemoglobin was 8.4 and clear liquids was initiated. There was some concern of possible aspiration and Speech Therapy was consulted. Her diet was slowly advanced per Speech Therapy back to a regular diet. On May 12, Dr. Merchant was consulted due to a left pleural effusion. A left thoracentesis was completed with 800 mL out. Culture of this showed no bacteria. Cytology was also negative for malignant cells. On May 13, the patient was felt to be stable and ready for transfer to medical-surgical unit. She was restarted on cefepime for a left lower lung infiltrate on May 14. On May 16, her retention sutures were removed by Dr. Ocampo. She continued with the wound VAC. The patient's hemoglobin did drift down to 7.7 on May 18 and another unit of packed red blood cells was given. She also had reaccumulated the left pleural effusion. A repeat thoracentesis was attempted but failed. Dr. Osman was consulted, and he subsequently took the patient to the operating room on May 19 for thoracoscopy. On May 22, cefepime was stopped with resolution of the pneumonia. The patient continues to work with PT and OT. She does have a chest tube in place, which is still putting out high output. She is tolerating diet. Her pain is controlled with oral pain medication. We anticipate that the patient will be ready for transfer to swing bed once the chest tube is removed. The patient also will need vaccinations after having her spleen embolized. For specifics on day-to-day care, please refer to the hospital chart. SHIMON BOLIVAR PA-C FOR MD YU CORBIN/deborah /[id number] d: 05/28/16 0429 t: 06/25/16 1811, PROGRESS NOTES
--- NOTE | ~2016-05-06 | PN ---
PATIENT'S NAME: ROLANDO ROJAS [facility] AGE: 70 Y [address] ROOM: [address] [address] [place] [facility] [place] DATE: 05/06/2016 Progress Notes DISCHARGE DATE: FAMILY PHYSICIAN: PHYSICIAN, UNKNOWN ATTENDING PHYSICIAN: Killian Ocampo DATE OF SERVICE: 05/19/2016 This patient is doing fair. Her biggest problem is with her pleural effusion of the left chest. She has a low-grade fever. Chest x-ray done yesterday showed fluid in the left chest. The rail layer attempted to do thoracentesis x2 and only got blood. CT scan of her chest was taken, which showed a large left pleural effusion increased in volume with consolidation and a small right pleural effusion also. There is no pneumothorax, but there is a mild midline shift to the right. She does have residual fluid around her spleen secondary to her splenic rupture treated by embolization. Her pulse oximetries have varied, but have been better than before but not always consistent. She is tolerating her soft diet. She does not have a great appetite. She was transfused as well. Her laboratory data pending at this time. After the transfusion, major concern is her pulmonary issue. I have asked, Dr. Osman, the cardiothoracic surgeon, to evaluate her left chest for his opinion and also I have asked radiology for their opinion if they could guide a thoracentesis catheter into her left pleural space for adequate drainage, this seems to be her major concern at this time. MD TONYA JEAN/deborah /[id number] d: 05/19/16 06 t: 06/26/16 1114, PROGRESS NOTES
--- NOTE | ~2016-05-06 | HP ---
PATIENT'S NAME: ROLANDO ROJAS [facility] AGE: 70 Y [address] ROOM: [place] [address] LOCATION: [facility] ADMIT DATE: 05/06/2016 History & Physical DISCHARGE DATE: FAMILY PHYSICIAN: PHYSICIAN, UNKNOWN ATTENDING PHYSICIAN: POORNIMA MACDONALD V DATE OF SERVICE: REASON FOR ADMISSION: Hypotension. HISTORY OF PRESENT ILLNESS: The patient is a 70-year-old female, who was seen in [place] on April 26, where she had nausea and dry heaves. Her pain had begun on the . She was admitted to the hospital in [place] where she was found to have a bowel obstruction. She underwent an operation, required resection. Apparently, there was a significant amount of spillage of small bowel contents. Postoperatively, she did relatively well. As her bowels began progressing, she had bowel movements. She did have a wound infection, that was being managed. Apparently, she had been normotensive with normal labs, had a syncopal episode today, was found to have low blood pressure. Also had abdominal pain this time. Because of this, a CT scan was performed, which revealed spontaneous rupture of the spleen. She was on Lovenox. It is unclear whether or not she was on Eliquis. She is awake, uncomfortable. She is alert to person and place but is hypotensive with systolic blood pressures in the 50s. On fluid resuscitation, systolically, blood pressure was in the 115s. PAST MEDICAL HISTORY: Includes seizure disorder, hypertension, incontinence, history of pulmonary embolus. PAST SURGICAL HISTORY: Vaginal mesh, right knee replacement, cholecystectomy, hysterectomy. ALLERGIES: MORPHINE, PHENOBARBITAL, SULFA. HOME MEDICATIONS: 1. Neurontin. 2. Synthroid. 3. Amiodarone. 4. Eliquis. 5. Calcium. 6. Vitamin D. PATIENT'S NAME: ROLANDO ROJAS [facility] AGE: 70 Y [address] ROOM: [place] [address] [address]: [facility] ADMIT DATE: 05/06/2016 History & Physical DISCHARGE DATE: FAMILY PHYSICIAN: PHYSICIAN, UNKNOWN ATTENDING PHYSICIAN: POORNIMA MACDONALD V 7. Oxybutynin. 8. Colace. 9. [place]. 10. Hydrochlorothiazide. 11. Dexilant. 12. Bystolic. 13. Keppra. PHYSICAL EXAMINATION: GENERAL: She is a very elderly appearing 70-year-old female. HEENT: Head is normocephalic. SKIN: Her skin is quite pale. NEURO: She is awake, alert, and oriented. HEART: Regular rate and rhythm. LUNGS: Clear to auscultation bilaterally. ABDOMEN: Distended. She does have a dressing in place with Holliday straps. Her abdomen is quite distended. Bowel sounds are not present. EXTREMITIES: Her extremities reveal no edema. ASSESSMENT: 1. Hypotension. 2. Blood loss anemia. 3. Status post laparotomy and bowel resection. PLAN: At this point in time, the patient has required significant resuscitation. However, her blood pressure has stabilized. We did place a central line. I placed an arterial line using ultrasound guidance and Seldinger technique. With the resuscitation and having adequate lines, with her recent operation, we will try to perform splenic embolization if not possible or becomes further unstable, we likely will need to perform splenectomy. More than an hour was spent in direct patient care with resuscitation and line placement. PRANAY MD KEARA PEREZ/deborah /[id number] D: [id number] T: [id number] HISTORY & PHYSICAL
--- NOTE | ~2016-05-06 | OR ---
PATIENT'S NAME: ROLANDO ALCAZAR [facility] AGE: 70 Y [address] ROOM: [address] [address] LOCATION: [facility] [place] ADMIT DATE: 05/06/2016 OR/Procedure Report DISCHARGE DATE: FAMILY PHYSICIAN: PHYSICIAN, UNKNOWN ATTENDING PHYSICIAN: Killian Ocampo SURGEON: Michel Osman DO STONEMASON HELPER: DATE OF PROCEDURE: 05/20/2016 PREOPERATIVE DIAGNOSIS: Left hemothorax status post failed thoracentesis. POSTOPERATIVE DIAGNOSIS: Left hemothorax status post failed thoracentesis. PROCEDURES: Left thoracoscopy with drainage of pleural effusion. REFERRING PROVIDER: Dr. Killian Ocampo BRIEF HISTORY: Mrs. Alcazar is a 70-year-old white female who was admitted to [facility] on 04/28/2016 with a diagnosis of hypotension, blood loss anemia, and spontaneous rupture of the spleen. She has developed a fairly large left pleural effusion. This has failed to be drained by thoracentesis and we have been consulted to see her and brought her to the operative suite today for thoracoscopic evaluation of the pleural space. CAT scan was reviewed and found elevation of the hemidiaphragm with collapse of the left lower lobe. DESCRIPTION OF PROCEDURE: The patient was sterilely prepped and draped in the usual fashion for left thoracoscopy. An incision was created at approximately the fourth intercostal space in the anterior axillary line and we entered the pleural space bluntly. Finger sweep yielded marked elevation of the hemidiaphragm. Suction was placed and 890 mL of serosanguineous fluid was evacuated. An aliquot was sent for microbiologic sampling and one also for cytologic sampling. We then placed the thoracoscope, placed lateral incision under thoracoscopic guidance and with the neck through the accessory port and the original port, inspected the pleural space. There was no evidence of gross findings on the pleural surface. The hemidiaphragm was markedly elevated likely secondary to splenic hematoma and under the pleural space we placed a third incision more distally on to the chest wall and entered the pleural space bluntly above the hemidiaphragm and then placed a catheter 24-Mongolian Armando drain into the costophrenic space under direct visualization of the thoracoscope. Thoracoscope was withdrawn, the accessory incisions were closed in layered fashion with 2-0 Vicryl and 4-0 Monocryl and the chest tube was secured to the chest wall with 0 silk. Chest tube was then connected to suction. The patient was extubated and transferred to recovery in stable condition. PATIENT'S NAME: ROLANDO ALCAZAR [facility] AGE: 70 Y [address] ROOM: [place] [address] LOCATION: [facility] [place] ADMIT DATE: 05/06/2016 OR/Procedure Report DISCHARGE DATE: FAMILY PHYSICIAN: PHYSICIAN, UNKNOWN ATTENDING PHYSICIAN: Killian Ocampo DO LI HERNANDEZ/deborah /[id number] d: 05/21/16 2356 t: 05/22/16 1045, OPERATIVE SUMMARY
--- NOTE | ~2016-05-06 | OR ---
PATIENT'S NAME: ROLANDO ROJAS [facility] AGE: 70 Y [address] ROOM: [place] [address] LOCATION: [facility] ADMIT DATE: 05/06/2016 OR/Procedure Report DISCHARGE DATE: FAMILY PHYSICIAN: PHYSICIAN, UNKNOWN ATTENDING PHYSICIAN: Killian Ocampo SURGEON: Mark Merchant MD VET TECH: DATE OF PROCEDURE: 05/12/2016 PROCEDURE PERFORMED: Left thoracentesis. PREOPERATIVE DIAGNOSIS: Pleural effusion. POSTOPERATIVE DIAGNOSIS: Pleural effusion. OPERATIVE SUMMARY: After obtaining informed consent, we proceeded. Left upper chest was prepped and draped sterilely. Topical anesthesia was obtained with 1% lidocaine. Thoracentesis catheter was then used to enter the pleural space. 800 mL of babar colored fluid was removed without difficulty. The patient tolerated the procedure well. MD TAVO WHITE/modl /[id number] d: 05/12/162041 t: 05/31/16 1016, OPERATIVE SUMMARY
--- NOTE | ~2016-05-06 | ECHO ---
Transthoracic Echocardiography Report (TTE) Demographics Patient Name ROLANDO ROJAS Date of Study 05/20/2016 Patient Number [id number] Visit Number [id number] Date of 1945 Room Number G3208 Accession Number [id number] Gender Female Age 70 year(s) Referring Angelo Tompkins MD Commercial Art Instructor Citlali Frye [facility] Physician Christoph Haskins Physician Interpreting Sergei Field Fur Mixer Physician Supervising Ordering Physician Adilia Duron MD, MD/P Nurse Stress Laborer Syrup Machine Conclusions Contractility Score Summary Normal Left Ventricular contractility was noted. Summary The estimated left ventricular ejection fraction is 60%.The left ventricle is normal in size .Mild concentric left ventricular hypertrophy.WMAs are difficult to comment on. Trivial MR. There is trivial aortic regurgitation by color Doppler. Mild tricuspid regurgitation by color Doppler. There is moderate pulmonary hypertension. The pulmonary pressure (RVSP) is 46 mmHg. Procedure Type of Study TTE procedure:2D Echocardiogram, M-Mode, Doppler , Color Doppler. Procedure Date Date: 05/20/2016 Start: 08:29 AM Study Location: Inpatient Portable Technical Quality: Adequate visualization Indications:Congestive heart failure. Appropriate Use Criteria: 9 Patient Status: Routine HR: 114 bpm M-Mode/2D Measurements LV Diastolic Dimension: 3.08 cm LV Systolic Dimension: 2.23 cm LV Septum Diastolic: 1.19 cm LV PW Diastolic: 1.18 cm AO Root Dimension: 2.8 cm Cardiac Output: 5.75 l/min LA Dimension: 3.4 cm LVOT: 1.9 cm LVOT VTI: 17.8 cm RV Base: 3.32 cm LV Stroke volume: 50.44 ml RV Length: 6.01 cm TAPSE: 2.3 cm TDI-S': 12.8 cm/s Doppler Measurements AV Peak Velocity: 1.36 m/s MV Peak E-Wave: 0.67 m/s AV Peak Gradient: 7.4 mmHg MV Peak A-Wave: 0.94 m/s AV Mean Gradient: 4 mmHg MV E/A Ratio: 0.72 LVOT Peak Velocity: 1.29 m/s MV Deceleration Time: 134 msec TR Velocity:3.09 m/s PV Peak Velocity: 1.02 m/s TR Gradient:38.19 mmHg PV Peak Gradient: 4.16 mmHg Estimated RAP:8 mmHg Estimated PASP: 46.19 mmHg Estimated RVSP: 46 mmHg A' Septal Velocity: 0.13 m/s E' Septal Velocity: 0.07 m/s A' Lateral Velocity: 0.17 m/s E' Lateral Velocity: 0.11 m/s Findings Left Ventricle The left ventricle is normal in size .Mild concentric left ventricular hypertrophy.Normal EF.WMAs are difficult to comment on. Right Ventricle RV is mildly dilated with normal function. Left Atrium The left atrium is normal size. The interatrial septum appears aneurysmal. No evidence of PFO or ASD by color doppler. Right Atrium RA is mildly dilated. Mitral Valve Normal mitral valve structure and function. Trivial mitral regurgitation by color Doppler. Aortic Valve The aortic valve is mildly sclerotic. There is trivial aortic regurgitation by color Doppler. Tricuspid Valve Normal tricuspid valve structure and function. Mild tricuspid regurgitation by color Doppler. There is moderate pulmonary hypertension. The pulmonary pressure (RVSP) is 46 mmHg. Pulmonic Valve The pulmonic valve is not well visualized. Pericardial Effusion No evidence of pericardial effusion. Miscellaneous Visualized portions of the aortic root and ascending aorta appear normal in size. Pleural Effusion No evidence of pleural effusion. Contractility Score LV regional wall motion:(0-Non visualized 1-Normal 2-Hypokinesis 3-Akinesis 4-Dyskinesis 5-Aneurysm) Signature dtt: Rashida Mai dtd: 05/20/16 0829 Physician Self Edit
[2016-05-06 15:56] LABS: HEMATOCRIT 23.2 % (33.0-46.0); HEMOGLOBIN 7.5 g/dL (10.0-15.0)
[2016-05-06 16:05] LABS: INR - (THERAPEUTIC) 1.1 (0.9-1.1); PROTIME 11.6 SECONDS (9.6-11.1)
[2016-05-06 16:07] LABS: BICARBONATE 16.7 mmol/L (18.0-23.0); LACTATE 5.1 mEq/L (0.50-1.60); PCO2 34 mmHg (35-45); PO2 167 mmHg (80-90)
[2016-05-06 17:28] LABS: CREATININE 0.9 mg/dL (0.5-1.1)
[2016-05-06 17:29] LABS: ESTIMATED GFR (MDRD EQUATION) > 60
[2016-05-06 18:42] LABS: HEMOGLOBIN 13.8 g/dL (10.0-15.0); MCH 29.8 pg (27.0-34.0); MCV 86.2 fl (83.0-98.0); MPV 9.2 fl (9.4-12.4); RBC 4.63 M/uL (3.50-5.50); RDW-CV 14.3 % (11.9-14.6)
[2016-05-06 18:43] LABS: HEMATOCRIT 39.9 % (33.0-46.0); MCHC 34.6 gm/dL (32.0-36.5); WBC 23.3 K/uL (4.0-11.0)
[2016-05-06 18:44] LABS: BICARBONATE 22.7 mmol/L (18.0-23.0); PCO2 44 mmHg (35-45); PLATELET COUNT 150 K/uL (150-450); PO2 102 mmHg (80-90)
[2016-05-06 18:58] LABS: INR - (THERAPEUTIC) 1.1 (0.9-1.1); PROTIME 11.6 SECONDS (9.6-11.1)
[2016-05-06 19:02] LABS: ALK PHOS 54 IU/L (33-138); ALT 18 IU/L (12-78); AST 46 IU/L (10-40); BLOOD UREA NITROGEN 19 mg/dL (6-24); CHLORIDE 109 mMol/L (96-110); CO2 22 mMol/L (22-32); CREATININE 0.8 mg/dL (0.5-1.1); ESTIMATED GFR (MDRD EQUATION) > 60; SODIUM 139 mMol/L (135-145); TOTAL BILIRUBIN 1.4 mg/dL (0.0-1.5)
[2016-05-06 19:03] LABS: ALBUMIN 1.7 gm/dL (3.5-5.0); ANION GAP 14.1 (10.0-19.0); CALCIUM 7.2 mg/dL (8.5-10.5); POTASSIUM 6.1 mMol/L (3.7-5.1); TOTAL PROTEIN 4.4 g/dL (6.0-8.4)
[2016-05-06 19:10] LABS: ABSOLUTE NEUTROPHIL CT (ANC) 21.4 K/uL (1.8-7.8); BANDED NEUTROPHIL # 4.7 K/uL (0.0-0.1); BANDED NEUTROPHILS % 20 %; LYMPHOCYTE # 1.4 K/uL (0.8-4.0); LYMPHOCYTE % 6 %; MONOCYTE # 0.2 K/uL (0.0-1.0); SEGMENTED NEUTROPHIL # 16.8 K/uL (1.8-7.8); SEGMENTED NEUTROPHIL % 72 %
[2016-05-06] MEDS ORDERED: NEURONTIN600 MG PO (19:34)
[2016-05-06] MEDS ORDERED: CALCIUM 600 +1 EAC3 PO (19:35)
[2016-05-06] MEDS ORDERED: ELIQUIS5 MG PO (19:35)
[2016-05-06] MEDS ORDERED: CORDARONE,PACE200 MG PO (19:35)
[2016-05-06] MEDS ORDERED: LEVOTHROID (SY50 MCG PO (19:35)
[2016-05-06] MEDS ORDERED: OXYBUTYNIN CHLOR5 M1 PO (19:36)
[2016-05-06] MEDS ORDERED: COLACE100 MG PO (19:36)
[2016-05-06] MEDS ORDERED: NORCO 5-325 TA1 EACH PO (19:37)
[2016-05-06] MEDS ORDERED: HYDRODIURIL25 MG PO (19:37)
[2016-05-06] MEDS ORDERED: DEXILANT60 MG PO (19:37)
[2016-05-06] MEDS ORDERED: BYSTOLIC5 MG PO (19:37)
[2016-05-06] MEDS ORDERED: KEPPRA500 MG PO (19:38)
[2016-05-06 21:50] LABS: BLOOD UREA NITROGEN 21 mg/dL (6-24); CHLORIDE 111 mMol/L (96-110); CO2 18 mMol/L (22-32); CREATININE 0.9 mg/dL (0.5-1.1); ESTIMATED GFR (MDRD EQUATION) > 60; SODIUM 141 mMol/L (135-145)
[2016-05-06 21:54] LABS: ANION GAP 17.7 (10.0-19.0); POTASSIUM 5.7 mMol/L (3.7-5.1)
[2016-05-06 23:24] LABS: HEMATOCRIT 36.3 % (33.0-46.0); HEMOGLOBIN 12.5 g/dL (10.0-15.0)
[2016-05-07 02:47] LABS: HEMATOCRIT 34.3 % (33.0-46.0)
[2016-05-07 05:02] LABS: BICARBONATE 19.7 mmol/L (18.0-23.0); PCO2 41 mmHg (35-45); PO2 83 mmHg (80-90)
[2016-05-07 05:27] LABS: ALBUMIN 2.6 gm/dL (3.5-5.0); CALCIUM 7.5 mg/dL (8.5-10.5); CREATININE 1.2 mg/dL (0.5-1.1); TOTAL BILIRUBIN 1.2 mg/dL (0.0-1.5)
[2016-05-07 05:29] LABS: ANION GAP 17.9 (10.0-19.0); POTASSIUM 5.9 mMol/L (3.7-5.1)
--- NOTE | 2016-05-07 05:41 | NUR ---
Significant Event: Patient AOx3, makes confused statements occasionally, but remains oriented. SR, BP labile with levophed infusing at 0.1mcg/kg/min to keep MAP>65. Pulses thready throughout. On 1L/NC, lung sounds clear. ETco2 25-33 with KETTLE HAND infusing 0.1mg/hr basal Dilaudid and 0.1mg demand with 10min. lockout. Bowel sounds hypoactive to rare. NG to LIS, brown/green bile. No bm this shift. Lackey intact, low UOP, MD aware. Skin abnormalities noted, large abdominal surgical incision dehisced, packed with wet-dry dressing. MRSA + wound. Follow up: Monitor labs, continue.
[2016-05-07 06:03] LABS: HEMATOCRIT 29.1 % (33.0-46.0); HEMOGLOBIN 10.1 g/dL (10.0-15.0); MCHC 34.7 gm/dL (32.0-36.5); MCV 85.8 fl (83.0-98.0); MPV 10.5 fl (9.4-12.4)
[2016-05-07 06:10] LABS: MCH 29.8 pg (27.0-34.0); PLATELET COUNT 184 K/uL (150-450); RBC 3.39 M/uL (3.50-5.50); WBC 24.3 K/uL (4.0-11.0)
[2016-05-07 06:44] LABS: BANDED NEUTROPHIL # 4.9 K/uL (0.0-0.1); BANDED NEUTROPHILS % 20 %; LYMPHOCYTE # 2.9 K/uL (0.8-4.0); LYMPHOCYTE % 12 %; MONOCYTE # 0.2 K/uL (0.0-1.0)
[2016-05-07 06:45] LABS: ABSOLUTE NEUTROPHIL CT (ANC) 21.1 K/uL (1.8-7.8); SEGMENTED NEUTROPHIL # 16.3 K/uL (1.8-7.8); SEGMENTED NEUTROPHIL % 67 %
[2016-05-07 07:44] LABS: HEMATOCRIT 25.1 % (33.0-46.0); HEMOGLOBIN 8.7 g/dL (10.0-15.0)
[2016-05-07 11:22] LABS: HEMATOCRIT 22.8 % (33.0-46.0)
[2016-05-07 15:39] LABS: HEMATOCRIT 27.3 % (33.0-46.0); HEMOGLOBIN 9.5 g/dL (10.0-15.0)
--- NOTE | 2016-05-07 17:21 | NUR ---
Significant Event: Patient is a little groggy upon awakening, but she is alert and oriented X3. Dilaudid CHAMPION OF SUSTAINABLE DESIGN continues to manage pain. Dilaudid prn pushes were given throughout the day for breakthrough pain. Levophed continues at 0.1mcg/kg/min to keep MAP >65. 1 unit of PRBC's was given today for hemoglobin 8.0. Urine output continues to be minimal and physicians are aware. NG is to LIS with green to brown output. We will continue to change wet to dry dressings to abdomen daily. Follow up: Continue
[2016-05-07 22:55] LABS: HEMATOCRIT 24.4 % (33.0-46.0); HEMOGLOBIN 8.5 g/dL (10.0-15.0)
--- NOTE | 2016-05-08 04:05 | NUR ---
Significant Event: AOx3. Levophed weaned to 0.07mcg/kg/min to keep map >65. Continues on 1L/NC. No output from NG tube, no bm this shift. UOP much better this shift 415 out, sediment noted. Abdominal dressing changed. Afebrile. Dilaudid RUG RECEIVING CLERK continues. Follow up: Monitor labs, continue.
[2016-05-08 04:22] LABS: ANION GAP 17.3 (10.0-19.0); CREATININE 1.2 mg/dL (0.5-1.1); MAGNESIUM 1.9 mg/dL (1.3-2.6); POTASSIUM 5.3 mMol/L (3.7-5.1)
[2016-05-08 04:25] LABS: CALCIUM 7.4 mg/dL (8.5-10.5); TOTAL BILIRUBIN 0.6 mg/dL (0.0-1.5); TOTAL PROTEIN 4.8 g/dL (6.0-8.4)
[2016-05-08 04:44] LABS: BASOPHIL # 0.1 K/uL (0.0-0.2); BASOPHIL % 0.2 %; HEMATOCRIT 23.7 % (33.0-46.0); HEMOGLOBIN 8.1 g/dL (10.0-15.0); IMMATURE GRANULOCYTE # 0.6 K/uL (0.0-0.3); IMMATURE GRANULOCYTE % 2.8 %; LYMPHOCYTE % 4.5 %; MCH 29.3 pg (27.0-34.0); MCHC 34.2 gm/dL (32.0-36.5); MCV 85.9 fl (83.0-98.0); MONOCYTE # 1.4 K/uL (0.0-1.0); MONOCYTE % 6.2 %; MPV 9.7 fl (9.4-12.4); NEUTROPHIL # (ANC) 19.3 K/uL (1.8-7.8); NEUTROPHIL % 86.3 %; NRBC % 0.1 /100WBC (0-0.00); PLATELET COUNT 211 K/uL (150-450); RBC 2.76 M/uL (3.50-5.50); RDW-CV 15.5 % (11.9-14.6)
[2016-05-08 04:50] LABS: WBC 22.3 K/uL (4.0-11.0)
[2016-05-08 08:18] LABS: HEMATOCRIT 22.3 % (33.0-46.0)
[2016-05-08 08:19] LABS: HEMOGLOBIN 7.7 g/dL (10.0-15.0)
[2016-05-08 11:57] LABS: HEMATOCRIT 24.9 % (33.0-46.0); HEMOGLOBIN 8.5 g/dL (10.0-15.0)
--- NOTE | 2016-05-08 14:49 | NUR ---
Introduced self and role of care management to pt and her son Eric and daughter in law Yarelis from [place]. Pt states she lives in an apartment in [facility] and her son Eric is the one that does the most. I did tell pt family she will most likely need strengenthing prior to home and pt is aware and mentioned swingbed or she states she would prefer [facility]. I did give Yarelis my card and I also called the [facility] and placed on there list. Will continue to follow.
[2016-05-08 15:39] LABS: HEMATOCRIT 24.6 % (33.0-46.0); HEMOGLOBIN 8.2 g/dL (10.0-15.0)
--- NOTE | 2016-05-08 15:52 | NUR ---
Significant Event: GI: No BM. 25mL bile out of NG tube this shift. Flatus, no BM. CARDIO: Levophed off at 1030 this shift. SBP 90s-110s. MAPs 60-80s. Afebrile. No edema. Pulses 2/2/2. RESP: Room air. 96% SaO2. WOUND: Wet-to-dry dressing change at 0900. Small amount of serosanguinous drainage. Rates pain 8-9/10. Dilaudid RECYCLABLE PRODUCTS SORTER and continuous gtt. 0.2 mg demand/0.1 mg continuous. 44 demands, 35 delivered. PRN Dilaudid given twice this shift, 0.5 mg then 1 mg. Hgb stable at 8.5 at 1100. One unit PRBC given this am.
[2016-05-08 19:15] LABS: HEMATOCRIT 24.1 % (33.0-46.0); HEMOGLOBIN 8.3 g/dL (10.0-15.0)
--- NOTE | 2016-05-09 04:20 | NUR ---
PT CONTINUES TO HAVE BREAKTHROUGH PAIN REQUIRING PRN DOSES OF DILAUDID. TOTAL ADMINISTRATION WAS 5.7 MG VIA METAL WEIGHER (26/33 BOLUS ATTEMPTS ADMINISTERED), AND 3MG VIA IVP. WHEN PATIENT'S PAIN INCREASES, SIGNIFICANT CHANGES IN VS INCLUDE DESATURATION, INCREASED ETCO2, HYPERTENSION, AND TACHYCARDIA. PT HAS REMAINED ON 1LN THIS SHIFT. REMAINS OFF LEVOPHED, BOARDERLINE HYPERTENSIVE AT TIMES. CONTINUES TO HAVE GREEN BILE DRAINAGE FROM NGT (50 ML OUT THIS SHIFT). BS INCREASING BUT STILL HYPOACTIVE. PT STATES SHE IS PASSING FLATUS, NO BM THIS SHIFT. UOP GOOD, FLUID BALANCE THIS 12 HRS +468 ML. DRESSING TO MIDLINE INCISION CHANGED X1 THIS SHIFT. SUTURES REMAIN INTACT, ANN STRAPS REMAIN INTACT. ALL TUBING AND CVL CAPS CHANGED THIS SHIFT. JUVENAL EGAN RN
[2016-05-09 04:28] LABS: ANION GAP 13.6 (10.0-19.0); BLOOD UREA NITROGEN 28 mg/dL (6-24); CALCIUM 7.8 mg/dL (8.5-10.5); CHLORIDE 110 mMol/L (96-110); CO2 22 mMol/L (22-32); CREATININE 0.9 mg/dL (0.5-1.1); PHOSPHORUS 3.4 mg/dL (2.5-4.9); POTASSIUM 4.6 mMol/L (3.7-5.1); SODIUM 141 mMol/L (135-145)
[2016-05-09 04:33] LABS: ALBUMIN 1.8 gm/dL (3.5-5.0); ESTIMATED GFR (MDRD EQUATION) > 60
[2016-05-09 05:04] LABS: BASOPHIL % 0.2 %; EOSINOPHIL # 0.2 K/uL (0.0-0.5); EOSINOPHIL % 1.2 %; HEMOGLOBIN 8.1 g/dL (10.0-15.0); IMMATURE GRANULOCYTE # 0.3 K/uL (0.0-0.3); IMMATURE GRANULOCYTE % 1.8 %; LYMPHOCYTE # 0.7 K/uL (0.8-4.0); LYMPHOCYTE % 3.9 %; MCH 29.3 pg (27.0-34.0); MCHC 33.8 gm/dL (32.0-36.5); MONOCYTE % 5.6 %; MPV 9.2 fl (9.4-12.4); NEUTROPHIL # (ANC) 15.9 K/uL (1.8-7.8); NEUTROPHIL % 87.3 %; NRBC % 0.2 /100WBC (0-0.00); RBC 2.76 M/uL (3.50-5.50); RDW-CV 16.4 % (11.9-14.6)
[2016-05-09 05:27] LABS: PLATELET COUNT 157 K/uL (150-450); WBC 18.3 K/uL (4.0-11.0)
[2016-05-09 11:05] LABS: HEMATOCRIT 25.7 % (33.0-46.0); HEMOGLOBIN 8.5 g/dL (10.0-15.0)
--- NOTE | 2016-05-09 12:14 | NUR ---
A - NUTRITION FOLLOW-UP. LAST RECORDED NG OUTPUT WAS 50ML, REMOVED THIS MORNING. STILL ON ICE CHIPS AND SIPS. PASSING GAS BUT NO BM YET. HYPOACTIVE BS. LABS: BUN 28, ALB 1.8. MEDS: ZYVOX DISCONTINUED, KEPPRA, SENIOR BEHAVIORAL SCIENTIST. DIET: NPO SINCE 05/07. VISITED PATIENT THIS MORNING. UBW 186#, FAIR APPETITE PRIOR TO ADMISSION, DIFFICULTY SWALLOWING AT TIMES. ANTICIPATE DIET TO ADVANCE SOON. EST NEEDS: [id number] KCAL, 89-118 GRAMS, FLUID NEEDS: 1ML/KCAL D - AT NUTRITION RISK W/ INADEQUATE ORAL INTAKE RELATED TO ALTERED GI FUNCTION SECONDARY TO RECENT GI SURGERY EVIDENCED BY NPO X2 DAYS. I - 1) RECOMMEND ST CONSULT ONCE ABLE TO START ORAL DIET D/T HISTORY OF DIFFICULTY SWALLOWING. WILL START ORAL SUPPLEMENT APPROPRIATE. 2) IF NOT ABLE TO START DIET IN 1-3 DAYS (DAY 5 OF NPO), RECOMMEND 100ML/HR PPN WITH 250ML 20% LIPIDS DAILY TO PROVIDE 1724 KCAL, 102 GRAMS PROTEIN. M/E - GOAL: TO MEET >75% OF PATIENT'S NEEDS VIA MOST APPROPRIATE ROUTE IN 1-3 DAYS. 1) WILL FOLLOW DIET AND POC.
--- NOTE | 2016-05-09 15:14 | NUR ---
SIGNIFICANT EVENT: PATIENT ALERT, ORIENTED X3. OPENS EYES SPONTANEOUSLY AND TO VOICE. PUPILS EQUAL AND REACTIVE. SPEECH IS PRESSURE. APPAROPRIATELY CONVERSATIONAL. NO FACIAL ASYMMETRY NOTED. PATIENT MAKES ALL NEEDS KNOWN. PATIENT COMPLAINS OF ABDOMINAL TENDERNESS/PAIN AND MID BACK PAIN. FORMULA MAKER PUMP INFUSING DILAUDID CONTINOUS OF 0.1 MG/HR AND DEMAND DOSE OF 0.2 MG EVERY 10 MINUTES. RELIEF NOTED PER PATIENT. PATIENT CONTINOUS TO EXPERIENCE NUMBING/TINGLING ( CHRONIC ISSUE PRIOR TO HOSPITALIZATION). PATIENT MOVES ALL 4 EXTREMITIES SPONTANEOUSLY AND TO COMMANDS. GENERALIZED WEAKNESS, EQUAL STRENGTH THROUGHOUT. PATIENT REPOSITIONED EVERY 2 HOURS. AMBULATED TO CHAIR X1, HEAVY 2 PERSON ASSISST. PATIENT HAS BEEN IN SINUS RHYTHM, HR 70-90S. PULSES PALPABLE THROUGHOUT. BP HYPERTENSIVE, SBP 130-160S, MAP CONSISTENTLY GREATER THAN 65. DR. SUTHERLAND AND DR SANCHEZ AWARE OF BP. AFEBRILE. GENERALIZED EDEMA. PATIENT ON 1L NASAL CANNULA TO KEEP SATS >90. SPONT, NON PRODUCTIVE COUGH. IS UTILIZED HOURLY. BOWEL SOUNDS HYPOACTIVE, PASSING GAS, NO BM. OG D/C'D TODAY. ABDOMINAL DRESSING CHANGED TODAY. WOUND VAC PLACED BY WOC RN AT BEDSIDE. NO NEW SKIN ISSUES NOTED. R) IJ INFUSING FORMULA MAKER DILAUDID AND NS AT 75ML/HR. FOLLOW UP: CONTINUE TO MONITOR
[2016-05-10 05:05] LABS: ANION GAP 13.3 (10.0-19.0); BLOOD UREA NITROGEN 21 mg/dL (6-24); CALCIUM 8.3 mg/dL (8.5-10.5); CHLORIDE 107 mMol/L (96-110); CO2 24 mMol/L (22-32); CREATININE 0.6 mg/dL (0.5-1.1); ESTIMATED GFR (MDRD EQUATION) > 60; POTASSIUM 4.3 mMol/L (3.7-5.1); SODIUM 140 mMol/L (135-145)
[2016-05-10 05:15] LABS: BASOPHIL % 0.2 %; EOSINOPHIL # 0.1 K/uL (0.0-0.5); EOSINOPHIL % 0.5 %; HEMATOCRIT 25.6 % (33.0-46.0); HEMOGLOBIN 8.4 g/dL (10.0-15.0); IMMATURE GRANULOCYTE # 0.2 K/uL (0.0-0.3); IMMATURE GRANULOCYTE % 1.1 %; LYMPHOCYTE # 0.6 K/uL (0.8-4.0); LYMPHOCYTE % 4.7 %; MCH 29.2 pg (27.0-34.0); MCHC 32.8 gm/dL (32.0-36.5); MCV 88.9 fl (83.0-98.0); MONOCYTE # 0.7 K/uL (0.0-1.0); MONOCYTE % 5.4 %; MPV 9.3 fl (9.4-12.4); NEUTROPHIL # (ANC) 11.6 K/uL (1.8-7.8); NEUTROPHIL % 88.1 %; NRBC % 0.5 /100WBC (0-0.00); PLATELET COUNT 158 K/uL (150-450); RBC 2.88 M/uL (3.50-5.50); WBC 13.2 K/uL (4.0-11.0)
--- NOTE | 2016-05-10 06:43 | NUR ---
Significant Event: A&Ox3, Forgetful to date at times. HTN, PRN BP meds ordered. IV lopresser and hydralazine given. Increased wheezes in lungs, IV lasix given. D/C'd IV fluids. NS at TKO for Dilaudid GARDEN CENTER MANAGER. GARDEN CENTER MANAGER at 0.1mg continuous, 0.2mg demand. PRN IV dilaudid given for breakthrough pain X2. NPO with ice chips. Lackey patent. Wound Vac to midline ABD intact with no complications. Roughly 50mls out of wound vac. Art line to left forearm splint. CVP with no complications. Right IJ Quad lumen with no complications. Repositioned Q2hrs. Pleasant and cooperative with cares. Follow up:
--- NOTE | 2016-05-10 13:40 | NUR ---
SIGNIFICANT EVENT: PATIENT ALERT, ORIENTED X3. OPENS EYES SPONTANEOUSLY AND TO VOICE. PUPILS EQUAL AND REACTIVE. SPEECH IS APPROPRIATE. PATIENT MAKES ALL NEEDS KNOWN. NO FACIAL ASYMMETRY. PATIENT IS ON A SHELLACKER PUMP, DILAUDID CONTINOUS 0.1MG/HR, DEMAND DOSE 0.2MG WITH A 10 MINUTE LOCK OUT. PATIENT UTLIZES SHELLACKER APPROPRIATELY. RELIEF NOTED PER PATIENT. OCCASIONALLY COMPLAINS OF PAIN IN MID BACK AND ABDOMEN. RELIEF ALSO NOTED FROM REPOSITIONING. PATIENT MOVES ALL 4 EXTREMITIES SPONTANEOUSLY AND TO COMMANDS. EQUAL STRENGTH THROUGHOUT, GENERALIZED WEAKNESS. PATIENT HAS BEEN IN SINUS RHYTHM, HR 90-110S. PULSES PALPABLE THROUGHOUT. BP STABLE. SBP>90 AND LESS THAN 160, MAP>65. L) ARTERIAL LINE D/C'D PER MD ORDER, NO HEMATOMA, NO COMPLICATIONS. CVP MONITORING STOPPED. AFEBRILE. GENREALIZED EDEMA. PATIENT IS CURRENTLY ON 1 L OF OXYGEN PER NASAL CANNULA, SATS MID TO UPPER 90S. INCENTIVE SPIROMETER UTLIZED HOURLY. SPONT COUGH, NON PRODUCTIVE. SHALLOW BREATHING AT TIMES. CO2 CONTINOUS MONITORING R/T SHELLACKER 30-33. BOWEL SOUNDS PRESENT, PATIENT PASSING GAS, NO BM. CLEAR LIQUID DIET, DECREASED APPETITE NOTED. MARISCAL INTACT, INCREASED URINE OUTPUT R/T BUMEX. NO NEW SKIN ISSUES NOTED. PATIENT REPOSITIONED AT LEAST EVERY 2 HOURS. BATH COMPLETED. R) IJ INFUSING SHELLACKER DILAUDID AND NS CARRIER FOLLOW UP: CONTINUE TO MONITOR
[2016-05-11 04:05] LABS: ANION GAP 14.4 (10.0-19.0); BLOOD UREA NITROGEN 18 mg/dL (6-24); CHLORIDE 105 mMol/L (96-110); CO2 26 mMol/L (22-32); CREATININE 0.5 mg/dL (0.5-1.1); ESTIMATED GFR (MDRD EQUATION) > 60; MAGNESIUM 1.8 mg/dL (1.3-2.6); POTASSIUM 3.4 mMol/L (3.7-5.1); SODIUM 142 mMol/L (135-145)
[2016-05-11 04:37] LABS: HEMATOCRIT 24.4 % (33.0-46.0)
--- NOTE | 2016-05-11 04:37 | NUR ---
PT REMAINS A/O X3, EASILY AROUSABLE. ST ON MONITOR, HYPERTENSIVE THIS SHIFT WITH SBP 140S-160S. NO PRN ANTIHYPERTENSIVES GIVEN THIS SHIFT. REMAINS ON 1L NC THIS SHIFT, NO NEED FOR TITRATING. PRN NEB GIVEN DUE TO INSPIRATORY AND EXPIRATORY WHEEZES THROUGHOUT. CRACKLES NOTED AT TIMES, PATIENT NOT SYMPTOMATIC AT THIS TIME. BM X1 THIS SHIFT, LOOSE, D[place] BR[place]. UOP ADEQUATE. NO CHANGES WITH SKIN ASSESSMENT. NO PRN DILAUDID GIVEN THIS SHIFT. PATIENT STATES PAIN IS TOLERABLE. JUVENAL EGAN RN
[2016-05-11 04:39] LABS: HEMOGLOBIN 7.9 g/dL (10.0-15.0)
--- NOTE | 2016-05-11 14:02 | NUR ---
A-NUTRITION F/U (+)BM; HYPOACTIVE BS PER CHART REVIEW, SWALLOW EVAL COMPLETED AND ST RECOMMENDS PUREED DIET W/THIN LIQUIDS. LABS: NA 142, K+ 3.4, GLU 74, BUN 18, BUDGET MANAGER 0.5, ALB 1.8 MEDS: TRANDATE INJ. DIET RX: NPO EST NUTR NEEDS: 8293-3108 KCALS AND 89-118 GM PROTEIN D-AT NUTRITION RISK W/INADEQUATE INTAKE OF NUTRIENTS R/T ALTERED GI FXN AEB NPO STATUS, RECENT SMALL BOWEL RESECTION. ALSO AT NUTRITION RISK W/ INCREASED NUTRIENT INTAKE R/T HEALING AEB LG ABD WOUND. I-WHEN DIET ADVANCED, WILL START ENSURE ENLIVE TID W/MEALS TO PROVIDE ADDITIONAL NUTRIENTS. M/E-GOAL: START APPROPRIATE DIET RX WITHIN 24 HOURS 1)F/U DIET RX, GI, SKIN, AND POC IN 2-3 DAYS 2)ASSIST NEEDED
--- NOTE | 2016-05-11 14:44 | NUR ---
SIGNIFICANT EVENTS: PATIENT ALERT, ORIENTED X3. OPENS EYES SPONTANEOUSLY AND TO VOICE. PUPILS EQUAL AND REACTIVE. PATIENT MOVES ALL 4 EXTREMITIES SPONTANEOUSLY AND TO COMMANDS, GENERALIZED WEAKNESS. EQUAL STRENGTH THROUGHOUT. SPEECH IS APPROPRIATE. NO FACIAL DROOPING. PATIENT ON DILAUDID PAID SEARCH MARKETING STRATEGIST RELATED TO ABDOMINAL AND MIDLLE OF BACK PAIN. RELIEF NOTED FROM PAID SEARCH MARKETING STRATEGIST; CONTINOUS DOSE OF 0.1MG/HR AND 0.2MG TO DEMAND EVERY 10 MINUTES. CO2 MONITOR ON AT ALL TIMES, 30-34. PATIENT HAS BEEN IN SINUS RHYTHM, OCCASSIONALLY TACHY INTO 110S. HYPERTENSIVE, SBP AT BASELINE 140-150, LABETALOL AND HYDRALAZINE GIVEN EACH X1 TODAY. EDEMA PRESENT. AFEBRILE. PULSES PALPABLE THROUGHOUT. PATIENT ON 1 L NASAL CANNULA, SAT MID TO UPPER 90S. PRIOR TO LASIX ADMINISTRATION PATIENT WAS SOB. INCENTIVE SPIROMETER UTILIZED HOURLY. PATIENT ON PUREE'D DIET, TOLERATING WELL. BOWEL SOUNDS ACTIVE, NO BM TODAY. WOUND VAC TO ABDOMEN, NO COMPLICATIONS. SEALED AND INTACT, CLEAN AND DRY. NO NEW SKIN ISSUES NOTED. PATIENT REPOSITIONED AT LEAST EVERY 2 HOURS. FOLLOW UP: CONTINUE TO MONITOR
[2016-05-11 19:24] LABS: HEMOGLOBIN 8.3 g/dL (10.0-15.0)
--- NOTE | 2016-05-12 04:43 | NUR ---
PT CONTINUES TO BE HYPERTENSIVE WITH PRN ANTIHYPERTENSIVES GIVEN. SR-ST ON MONITOR. CRACKLES HEARD THROUGHOUT ALL LUNG ASHBY; PATIENT DENIES SOB AND SATS REMAIN IN MID-90S ON 1LNC. DILAUDID MACHINE WELDER CONTINUED, PRN DILAUDID X1 DOSE GIVEN FOR BREAKTHROUG PAIN. PATIENT MORE STEADY ON FEET THIS SHIFT THAN PRIOR PM. NO BM, BS PRESENT. CAPS ON CENTRAL LINE AND IV TUBING CHANGED THIS SHIFT. JUVENAL EGAN RN
[2016-05-12 04:56] LABS: INR - (THERAPEUTIC) 1.1 (0.9-1.1); PROTIME 11.2 SECONDS (9.6-11.1); PTT 29 SECONDS (25-32)
[2016-05-12 05:03] LABS: ALBUMIN 2.2 gm/dL (3.5-5.0); ALK PHOS 53 IU/L (33-138); ALT 26 IU/L (12-78); ANION GAP 17.2 (10.0-19.0); AST 25 IU/L (10-40); BLOOD UREA NITROGEN 13 mg/dL (6-24); CALCIUM 8.6 mg/dL (8.5-10.5); CHLORIDE 103 mMol/L (96-110); CO2 26 mMol/L (22-32); CREATININE 0.4 mg/dL (0.5-1.1); ESTIMATED GFR (MDRD EQUATION) > 60; POTASSIUM 3.2 mMol/L (3.7-5.1); SODIUM 143 mMol/L (135-145); TOTAL PROTEIN 5.9 g/dL (6.0-8.4)
[2016-05-12 05:05] LABS: TOTAL BILIRUBIN 0.8 mg/dL (0.0-1.5)
[2016-05-12 05:17] LABS: BASOPHIL % 0.3 %; EOSINOPHIL # 0.1 K/uL (0.0-0.5); EOSINOPHIL % 1.4 %; HEMATOCRIT 25.2 % (33.0-46.0); HEMOGLOBIN 8.2 g/dL (10.0-15.0); IMMATURE GRANULOCYTE # 0.1 K/uL (0.0-0.3); IMMATURE GRANULOCYTE % 1.3 %; LYMPHOCYTE # 0.5 K/uL (0.8-4.0); LYMPHOCYTE % 5.1 %; MCH 29.4 pg (27.0-34.0); MCHC 32.5 gm/dL (32.0-36.5); MCV 90.3 fl (83.0-98.0); MONOCYTE % 10.7 %; MPV 9.4 fl (9.4-12.4); NEUTROPHIL # (ANC) 7.3 K/uL (1.8-7.8); NEUTROPHIL % 81.2 %; NRBC % 0.7 /100WBC (0-0.00); PLATELET COUNT 203 K/uL (150-450); RBC 2.79 M/uL (3.50-5.50); RDW-CV 15.3 % (11.9-14.6)
--- NOTE | 2016-05-12 16:49 | NUR ---
Significant Event: Pt is alert/oriented x 3. Increased SOB and oxygen demands this shift. Left lung diminished. Chest-xray showed left pleural effusion. Thoracentesis done by Dr. Merchant, 800mls removed. 02 down to 1L NC, dyspnea improved. Up to chair x 2. 2 assist with walker and a gaitbelt. Wound vac to abdomen C/D/I. Continues with dilaudid ALTERATIONS EXPERT. Bowel movement x 2. Family here to visit today. Follow up: continue plan of care.
--- NOTE | 2016-05-13 04:28 | NUR ---
Significant Event: Pt oriented x3. Follows commands. Talkative at times. Has begun frequent stooling. Stool sample sent to check for cdiff. Which was negative. Pt has been incontinent of stool. Bath given. Dilaudid CHEESE PRODUCTION SUPERVISOR with relief noted. Wound Vac intact to abdomen. Pt assists with turns in the bed. R)IJ quad lumen patent. Lackey patent. Adequate uop. RA to 1L nc during the day. 2L at noc. Follow up: Transfer?
[2016-05-13 12:30] LABS: BASOPHIL % 0.3 %; EOSINOPHIL # 0.1 K/uL (0.0-0.5); EOSINOPHIL % 0.7 %; HEMATOCRIT 27.6 % (33.0-46.0); HEMOGLOBIN 8.7 g/dL (10.0-15.0); IMMATURE GRANULOCYTE # 0.4 K/uL (0.0-0.3); IMMATURE GRANULOCYTE % 3.5 %; LYMPHOCYTE # 0.6 K/uL (0.8-4.0); LYMPHOCYTE % 4.7 %; MCH 29.1 pg (27.0-34.0); MCHC 31.5 gm/dL (32.0-36.5); MCV 92.3 fl (83.0-98.0); MONOCYTE # 1.1 K/uL (0.0-1.0); MPV 9.2 fl (9.4-12.4); NEUTROPHIL # (ANC) 10.3 K/uL (1.8-7.8); NEUTROPHIL % 81.8 %; NRBC % 0.3 /100WBC (0-0.00); PLATELET COUNT 242 K/uL (150-450); RBC 2.99 M/uL (3.50-5.50); RDW-CV 15.7 % (11.9-14.6); WBC 12.7 K/uL (4.0-11.0)
[2016-05-13 12:58] LABS: ALBUMIN 2.2 gm/dL (3.5-5.0); ALK PHOS 60 IU/L (33-138); ALT 22 IU/L (12-78); ANION GAP 12.5 (10.0-19.0); AST 26 IU/L (10-40); BLOOD UREA NITROGEN 15 mg/dL (6-24); CALCIUM 8.4 mg/dL (8.5-10.5); CHLORIDE 103 mMol/L (96-110); CO2 31 mMol/L (22-32); CREATININE 0.5 mg/dL (0.5-1.1); ESTIMATED GFR (MDRD EQUATION) > 60; MAGNESIUM 1.7 mg/dL (1.3-2.6); POTASSIUM 3.5 mMol/L (3.7-5.1); SODIUM 143 mMol/L (135-145); TOTAL BILIRUBIN 0.9 mg/dL (0.0-1.5)
--- NOTE | 2016-05-13 15:20 | NUR ---
I did call [facility] this am and spoke with Sandy BRUSH and explained pt may need swingbed prior to prison home. They are aware of pt and I did fax information to them. WIll continue to follow and assist.
--- NOTE | 2016-05-13 17:16 | NUR ---
Significant Event: GI: 0 ml out of wound vac. Dressing changed today by WOC RN. Pureed diet. RESP: Room air, SaO2 94%. Diminished lung sounds. CARDIO: SBP 110s-130s. Max temp 99.5. Generalized mild edema. IV: Dilaudid ACCOUNT TECHNICIAN discontinued today. [place] 1 tab given x1 today.
--- NOTE | 2016-05-14 03:04 | NUR ---
Significant Event: Pt continues to be alert/oriented x3. Follows commands. Moves all extremities x4. Assists with repositioning in bed. Pt had 8 beats of SVT tonight. No other ectopy noted. Hemodynamically stable. Pt has developed a moist non productive cough early this am. Slightly course CELINA. o2 2l/nc. Abd pain treated with [place] tonight. Last given at 2300 with relief noted. Continues to have loose stools. Some stools are watery consistency. Midline to L)upper arm patent. Pt is saline locked. Follow up: MSU status
[2016-05-14 07:00] LABS: ANION GAP 10.3 (10.0-19.0); BLOOD UREA NITROGEN 16 mg/dL (6-24); CALCIUM 8.2 mg/dL (8.5-10.5); CHLORIDE 102 mMol/L (96-110); CO2 31 mMol/L (22-32); CREATININE 0.5 mg/dL (0.5-1.1); ESTIMATED GFR (MDRD EQUATION) > 60; PHOSPHORUS 2.3 mg/dL (2.5-4.9); POTASSIUM 3.3 mMol/L (3.7-5.1); SODIUM 140 mMol/L (135-145)
[2016-05-14 07:13] LABS: HEMATOCRIT 26.3 % (33.0-46.0); HEMOGLOBIN 8.6 g/dL (10.0-15.0); MCH 29.9 pg (27.0-34.0); MCHC 32.7 gm/dL (32.0-36.5); MCV 91.3 fl (83.0-98.0); MPV 9.4 fl (9.4-12.4); PLATELET COUNT 299 K/uL (150-450); RBC 2.88 M/uL (3.50-5.50); RDW-CV 16.4 % (11.9-14.6); WBC 12.5 K/uL (4.0-11.0)
[2016-05-14 07:38] LABS: BANDED NEUTROPHIL # 1.9 K/uL (0.0-0.1); BANDED NEUTROPHILS % 15 %; LYMPHOCYTE # 0.6 K/uL (0.8-4.0); LYMPHOCYTE % 5 %; MONOCYTE # 0.6 K/uL (0.0-1.0); SEGMENTED NEUTROPHIL # 9.1 K/uL (1.8-7.8); SEGMENTED NEUTROPHIL % 73 %
--- NOTE | 2016-05-14 11:03 | NUR ---
A-NUTRITION F/U; CONSULT RECEIVED FOR NUTRITION CONSULT. HYPOACTIVE BS. LOOSE STOOLS; C-DIFF NEGATIVE WOUND VAC IN PLACE TO ABD VISITED W/PT RE: SUPPLEMENT. PT IS DRINKING WHAT SHE CAN OF THE ENSURE; PREFERS STRAWBERRY FLAVOR OVER CHOCOLATE OR VANILLA. DISCUSSED OTHER SUPPLEMENT OPTIONS; PT WAS AGREEABLE TO TRYING VANILLA MAGIC CUPS W/LUNCH AND DINNER. PT STATES HER APPETITE IS IMPROVING SLOWLY. THIS AM SHE HAD [place]ONG K[place]ER TOAST, APPLESAUCE, HER COFFEE, AND SOME OF THE ENSURE. PT REPORTS THAT PRIOR TO BEING HOSPITALIZED HER APPETITE WAS GOOD AND HER WT WAS STABLE. UBW REPORTED "AROUND 188 LBS." CBW: 92.1 KG (203 LBS). LABS: NA 140, K+ 3.3, GLU 95, BUN 16, ACOUSTIC INTELLIGENCE SPECIALIST 0.5, ALB 2.0. 05/13 PREALB 9.0 MEDS: MAXIPIME, LASIX, PROTONIX, [place], NORCO, DILAUDID DIET RX: PUREE W/ENSURE ENLIVE TID. PO INTAKE IS SLOWLY IMPROVING EST NUTR NEEDS: 1166-6220 KCALS AND 89-118 GM PROTEIN D-AT NUTRITION RISK W/INCREASED NUTRIENT NEEDS R/T HEALING AEB WOUND TO ABD, WOUND VAC. ALSO AT NUTRITION RISK W/INADEQUATE INTAKE OF NUTRIENTS R/T RECENT NPO STATUS, DECREASED APPETITE AEB INTAKE RECORDS, PT REPORT I-1)CHANGE ENSURE ENLIVE TO STRAWBERRY TID 2)ADD VANILLA MAGIC CUP BID TO L/D M/E-GOAL: PO INTAKE >/=50% BY NEXT F/U 1)F/U PO INTAKE, SUPPLEMENT, LABS, WT, AND POC IN 3-5 DAYS 2)ASSIST NEEDED
--- NOTE | 2016-05-14 12:24 | NUR ---
Social visit with pt today regarding dc plans. I explained I have her on the [facility] list but with everything that is going on and the wound vac I think the swingbed would be a better option for a week or so. She states that would be fine with her and then can transition over there when ready. She states to call her sister because she is her POA and she what she thinks. I then called Yarelis [phone] and discussed safe dc plans and that she will need skilled/swingbed prior to home and she agrees. I did tell her she is on the [facility] list but believe she will need closer watching at the swingbed and she agree's. I explained I did make a referral and unsure when she will be ready but could be at the end of the week. Yarelis agree's to this and also thinking she may need an LONG TERM down the road. WIll contiue to follow and assist as needed. I did update Cassie TAYLOR.
--- NOTE | 2016-05-14 16:38 | NUR ---
Ambulated in room. Pain controlled to patient's satisfaction with [place] x 2. VSS. SaO2 98% on 2L. RA when awake. 0 ml out of wound vac.
--- NOTE | 2016-05-14 17:32 | NUR ---
Significant Event: Pt transfered out of ICU at 1645. 1-2 assist. a/o x3, sometimes slow to respond. Lackey intact. Wound vac intact. Up in chair. Pureed diet. Isolation for MRSA. Follow up:
--- NOTE | 2016-05-15 04:27 | NUR ---
Significant Event: Patient is AO x 3. Arrived to floor from ICU 05/14. Pain has been controlled with [place] x 2, last given around 2300. Pt state pain at 5/10 is tolerable. VSS. SaO2 99% on 2L O2 while sleeping. 0 ml out of midline abdomen wound vac during shift. Wound vac placed after bowel surgery in [place]. Pt has dunn, 1150 out during shift. Midline IV to left upper arm for IV abx. 2 assist with walker and gait belt. Puree diet, takes pills whole with water. Pt rested well throughout the night.
[2016-05-15 05:58] LABS: HEMATOCRIT 27.1 % (33.0-46.0); HEMOGLOBIN 8.7 g/dL (10.0-15.0); MCH 29.6 pg (27.0-34.0); MCHC 32.1 gm/dL (32.0-36.5); MCV 92.2 fl (83.0-98.0); MPV 9.1 fl (9.4-12.4); RBC 2.94 M/uL (3.50-5.50); RDW-CV 16.3 % (11.9-14.6); WBC 11.9 K/uL (4.0-11.0)
[2016-05-15 06:09] LABS: PLATELET COUNT 368 K/uL (150-450)
[2016-05-15 06:18] LABS: ALK PHOS 70 IU/L (33-138); ALT 18 IU/L (12-78); BLOOD UREA NITROGEN 19 mg/dL (6-24); CALCIUM 8.2 mg/dL (8.5-10.5); CHLORIDE 100 mMol/L (96-110); CO2 31 mMol/L (22-32); CREATININE 0.5 mg/dL (0.5-1.1); ESTIMATED GFR (MDRD EQUATION) > 60; SODIUM 140 mMol/L (135-145); TOTAL PROTEIN 5.7 g/dL (6.0-8.4)
[2016-05-15 06:22] LABS: ANION GAP 12.5 (10.0-19.0); AST 35 IU/L (10-40); POTASSIUM 3.5 mMol/L (3.7-5.1)
[2016-05-15 06:54] LABS: ABSOLUTE NEUTROPHIL CT (ANC) 9.3 K/uL (1.8-7.8); BANDED NEUTROPHIL # 1.2 K/uL (0.0-0.1); BANDED NEUTROPHILS % 10 %; LYMPHOCYTE # 0.7 K/uL (0.8-4.0); LYMPHOCYTE % 6 %; MONOCYTE # 1.4 K/uL (0.0-1.0); SEGMENTED NEUTROPHIL # 8.1 K/uL (1.8-7.8); SEGMENTED NEUTROPHIL % 68 %
--- NOTE | 2016-05-15 12:52 | NUR ---
Contacted [facility] to see if they had a chance to look at the information [facility] faxed to them. I spoke to Melody and she states they have 16 surgeries this week and she is not sure they will have a bed. I informed her that at this time we are thinking patient may be ready for discharge on Friday of this week. Melody asked me to fax over updated information on patient. Faxed information attention Melody or Samantha to [phone] and asked them to contact [facility] or the main CM office with questions or response to the referral.
--- NOTE | 2016-05-15 18:40 | NUR ---
Significant event: Patient is alert and oriented x3. VSS,is tachycardic. On room air. Had 2 loose stools today, has been checked for C-diff already and that was negative. Has complained of left back pain, medication does help some. Is in isolation for MRSA. Has a bladder stimulator. Lackey in place and patent. Has wound vac to mid abd. Midline to Left upper arm, saline locked with intermittent antibiotics. Is a 2-assist with gait belt and walker. Cooperative with cares.
--- NOTE | 2016-05-16 04:23 | NUR ---
Significant Event: Patient is A&0 x 3. VSS. O2 sats at 88% during second assessment, put on 1L for remainder of night. 93% sats on 1L. Patient given 2 tabs [place] at 2014 and again at 54. Patient rates pain at 6 but says is tolerable. Resting throughout night. Pt has dunn. 2 assist with walker and gait belt. Puree diet, takes pills whole with water. Midline IV to left upper arm for IV antibiotics. Wound Vac to midline abdomen placed after bowel surgery. 50ml out of wound vac, from last 24 hours. Contact isolation for MRSA in wound. Follow up: Continue as per plan of care.
--- NOTE | 2016-05-16 10:44 | NUR ---
Received message back from [facility] Swingbed Coordinator that they are full this week and call her on Friday. I also called and left message for Gay at [facility] to see if they have female beds. Currently has a wound vac to abdominal wound and on IV antibx. Load Dispatcher will follow.
--- NOTE | 2016-05-16 17:09 | NUR ---
Significant Event: Patient alert and oriented x3 but very groggy and tired. Contact isolation for hx of MRSA. 2 assist with walker and gaitbelt. O2 at night on 2L. SOB at rest but patient declined wanting O2 and sats were stable. VS have been stable with a steady high pulse rate. Pureed diet but only had bites for bkfst otherwise sips of water rest of shift. IV antibx and no IV fluids. PRN meds: zofran and hydrocodone and dose of dilaudid and norco given routinely every 4 hours schedule. Last dose zofran at 1215, hydrocodone at 1640. Patient has c/o of sharp pain in LL abdomen. Wound vac drsg changed. D/C'd dunn at 1435 and has not yet voided but brief applied. IV in MELANIE with a limb alert for BP's. Saline locked. Follow up: Monitor for pain, nausea and SOB at rest.
--- NOTE | 2016-05-17 03:42 | NUR ---
NEURO: A&O x 3. CARDIO: WNL. RESP: Upper 90's on 2 ltr. GI/: Bladder scanned at 2350- 211 ml at that time. No c/o mausea this shift. Patient reports that she striaght caths herself at home BID. SKIN: Wound vac to abdominal sx site. IV: Midline in left upper arm. NS @ 60/hr. ACTIVITY: 2 assist with gaitblet and walker. PAIN: [place] Q4H PRN, last given at 2124. PLAN: Discharge when appropriate.
[2016-05-17 05:46] LABS: BASOPHIL # 0.1 K/uL (0.0-0.2); BASOPHIL % 0.6 %; EOSINOPHIL # 0.2 K/uL (0.0-0.5); EOSINOPHIL % 1.9 %; HEMATOCRIT 27.8 % (33.0-46.0); HEMOGLOBIN 8.7 g/dL (10.0-15.0); IMMATURE GRANULOCYTE # 0.6 K/uL (0.0-0.3); IMMATURE GRANULOCYTE % 4.5 %; LYMPHOCYTE # 0.8 K/uL (0.8-4.0); LYMPHOCYTE % 6.1 %; MCH 29.4 pg (27.0-34.0); MCHC 31.3 gm/dL (32.0-36.5); MCV 93.9 fl (83.0-98.0); MONOCYTE # 1.7 K/uL (0.0-1.0); MONOCYTE % 13.4 %; MPV 9.1 fl (9.4-12.4); NEUTROPHIL # (ANC) 9.1 K/uL (1.8-7.8); NEUTROPHIL % 73.5 %; NRBC % 0 /100WBC (0-0.00); RBC 2.96 M/uL (3.50-5.50); RDW-CV 16.9 % (11.9-14.6); WBC 12.3 K/uL (4.0-11.0)
[2016-05-17 05:49] LABS: ANION GAP 9.6 (10.0-19.0); BLOOD UREA NITROGEN 29 mg/dL (6-24); CALCIUM 8.2 mg/dL (8.5-10.5); CHLORIDE 103 mMol/L (96-110); CO2 33 mMol/L (22-32); CREATININE 0.6 mg/dL (0.5-1.1); ESTIMATED GFR (MDRD EQUATION) > 60; SODIUM 142 mMol/L (135-145)
[2016-05-17 05:51] LABS: PLATELET COUNT 487 K/uL (150-450)
[2016-05-17 05:56] LABS: POTASSIUM 3.6 mMol/L (3.7-5.1)
--- NOTE | 2016-05-17 10:20 | NUR ---
Updated patients nurse Katherine that we would contact [facility] on Friday to see if they had a bed open, nothing this week.
--- NOTE | 2016-05-17 14:20 | NUR ---
I have examined the student charting and find it acceptable. GONSALO Hutchinson
--- NOTE | 2016-05-17 14:29 | NUR ---
A - NUT F/U. WOUND VAC TO ABD. 1+ EDEMA. LABS: K+ 3.6, BUN/CR 29/0.6, ALB 2.0, WBC 12.3, HGB/HCT 8.7/27.8 MEDS: IVF, MAXIPIME, LASIX, PROTONIX, SYNTHROID, GABAPENTIN, NAUSEA DIET: PUREED. INTAKE: REF-100% (AVG ~22%) ENSURE TID - 100%, MAGIC CUP @ L&D. PT DRINKING ENSURE TID - PROVIDES 1050 KCAL, 60 G PRO. NEEDS: 1950-2926 KCAL, 89-118 G PRO D - INADEQUATE NUTRIENT INTAKE AT TIMES R/T DECREASED APPETITE, ALTERED GI FUNCTION AEB INTAKE RECORD, RECENT GI SURGERY. I - GOAL FOR INCREASED ORAL INTAKE. WILL CONTINUE ENSURE TID AND MAGIC CUP BID. M/E - WILL MONITOR INTAKE. F/U IN 4-5 DAYS.
--- NOTE | 2016-05-17 16:18 | NUR ---
Significant Event: Pt c/o intermiitent abd pain, partial relief with [address]. Up with 2 assist. Wound vac to lower abd d/i, scant drainage noted. Dc'd O2, 99% on 1 liter O2. new orders for IV mag, IV K+, albumin IV, routine Zofran, BMP and mag at [address] Kang. Pt only has a midline so will attempt IV stick if not IV meds will have to be given 1 at a time (mag and K+ compatible). Nauseated this am, gave Zofran IV x1. Had a student nurse this am. No void this am, bladder scanned for 295ml this am. St. cath BID as pt was at home. St. cath at 1100 by student nurse for 596ml drk urine. Follow up:
[2016-05-17 20:41] LABS: BLOOD UREA NITROGEN 33 mg/dL (6-24); CALCIUM 8.3 mg/dL (8.5-10.5); CHLORIDE 102 mMol/L (96-110); CO2 33 mMol/L (22-32); CREATININE 0.8 mg/dL (0.5-1.1); ESTIMATED GFR (MDRD EQUATION) > 60; SODIUM 140 mMol/L (135-145)
[2016-05-17 20:42] LABS: ANION GAP 9.3 (10.0-19.0); MAGNESIUM 2.3 mg/dL (1.3-2.6); POTASSIUM 4.3 mMol/L (3.7-5.1)
--- NOTE | 2016-05-18 04:53 | NUR ---
NEURO: A&O x 3. CARDIO: WNL. Occasionally tachy. RESP: Trying to wean of O2. Currently on 1 ltr after sats dropped on RA. GI/: Straight Cath BID. Done at 230 for 750ml. Also inc. in brief. SKIN: Wound vac to abdomen. IV: Midline left upper arm. ACTIVITY: 2 assist with gait belt and walker. PAIN: [place] Q4H PRN. PLAN: Discharge when appropriate.
[2016-05-18 05:56] LABS: BASOPHIL # 0.1 K/uL (0.0-0.2); BASOPHIL % 0.5 %; EOSINOPHIL # 0.3 K/uL (0.0-0.5); EOSINOPHIL % 1.9 %; HEMATOCRIT 25.5 % (33.0-46.0); IMMATURE GRANULOCYTE # 0.3 K/uL (0.0-0.3); IMMATURE GRANULOCYTE % 2.4 %; LYMPHOCYTE # 0.6 K/uL (0.8-4.0); LYMPHOCYTE % 4.3 %; MCH 28.9 pg (27.0-34.0); MCHC 30.2 gm/dL (32.0-36.5); MCV 95.9 fl (83.0-98.0); MONOCYTE # 1.5 K/uL (0.0-1.0); MONOCYTE % 11.2 %; MPV 9.4 fl (9.4-12.4); NEUTROPHIL # (ANC) 10.7 K/uL (1.8-7.8); NEUTROPHIL % 79.7 %; NRBC % 0 /100WBC (0-0.00); PLATELET COUNT 506 K/uL (150-450); RBC 2.66 M/uL (3.50-5.50); RDW-CV 17.1 % (11.9-14.6); WBC 13.5 K/uL (4.0-11.0)
[2016-05-18 06:02] LABS: HEMOGLOBIN 7.7 g/dL (10.0-15.0)
[2016-05-18 06:07] LABS: INR - (THERAPEUTIC) 1.1 (0.9-1.1); PROTIME 11.2 SECONDS (9.6-11.1)
[2016-05-18 06:16] LABS: ALK PHOS 61 IU/L (33-138); ALT 16 IU/L (12-78); BLOOD UREA NITROGEN 33 mg/dL (6-24); CALCIUM 8.3 mg/dL (8.5-10.5); CHLORIDE 104 mMol/L (96-110); CO2 32 mMol/L (22-32); CREATININE 0.8 mg/dL (0.5-1.1); ESTIMATED GFR (MDRD EQUATION) > 60; SODIUM 142 mMol/L (135-145); TOTAL PROTEIN 6.4 g/dL (6.0-8.4)
[2016-05-18 06:18] LABS: ANION GAP 9.8 (10.0-19.0); AST 38 IU/L (10-40); POTASSIUM 3.8 mMol/L (3.7-5.1)
--- NOTE | 2016-05-18 17:41 | NUR ---
Significant Event: Alert, oriented, drowsy. On 1-2 L O2, pt reports feeling short of breath. Chest Xray done and pulmonology consulted. Dr. Hays attempted thoracentesis x2. CT scan without contrast done, awaiting results. 1 unit pRBCs given. Straight cath at 1330, 2 incontinent voids. Advance diet to [facility] soft diet per speech therapy recommendation. Follow up: Treatment of L) chest pleural effusion
--- NOTE | 2016-05-19 05:33 | NUR ---
NEURO: A7O x 3. CARDIO: WNL. RESP: Tried to wean O2 down, but had increase it back to 2 ltr. GI/: Straight cath BID. Last night vathed for 650. also had incont. x 1. SKIN: Wound vac to abdomen. IV: L midline SL. Intermittant antibiotics. ACTIVITY: 2 assist with gaitbelt and walker. PAIN: [place] given x 2. PLAN: Consult Dr. Osman. Contact radiology about passing a thorecenteses cath into left plueral space today - after talking to Dr. Osman.
--- NOTE | 2016-05-19 16:45 | NUR ---
Significant Event: Patient is alert and oriented x3, forgetful. VSS- blood pressure was lower this morning- 92/58. Better this afternoon. Turning every 2 hours. Mechanical soft diet. 2PA with walker and gait belt. L)upper arm, SL. [place] last at 1618- [address] Osman was consulted. NPO after midnight. Plan is to have a left thorascopy with drainage of effusion in the late AM tomorrow. Drowsy today. Breathing treatments given throughout the day. On 2-2.5 liters of O2. Moans with breathing at times. Straight cath BID. Wound VAC to the midline abdomen. Isolation for MRSA. Cooperative with cares.
--- NOTE | 2016-05-20 04:18 | NUR ---
SIGNIFICANT EVENT: Patient alert, oriented. 2PA walker to ambulate. Q2h turn. Tachycardic, other VSS on RA. Thoracoscopy scheduled for today at approx 1130, should leave floor at approx 1000. NPO since MN. BID straight cath - last at 2300, yielded 450 mL urine. L) upper arm midline is sluggish to flush, does have blood return - intermittent antibiotics. [place] x1 this shift, last at approx 2230. Wound vac to abd d/t ruptured spleen. Swallow study done - can take PO meds, mechanical soft regular diet. Cooperative with cares.
[2016-05-20 05:57] LABS: BASOPHIL % 0.3 %; EOSINOPHIL # 0.2 K/uL (0.0-0.5); HEMATOCRIT 28.6 % (33.0-46.0); HEMOGLOBIN 8.8 g/dL (10.0-15.0); IMMATURE GRANULOCYTE # 0.3 K/uL (0.0-0.3); LYMPHOCYTE # 0.6 K/uL (0.8-4.0); LYMPHOCYTE % 4.5 %; MCH 28.6 pg (27.0-34.0); MCHC 30.8 gm/dL (32.0-36.5); MCV 92.9 fl (83.0-98.0); MONOCYTE # 1.4 K/uL (0.0-1.0); MPV 9.3 fl (9.4-12.4); NEUTROPHIL # (ANC) 9.9 K/uL (1.8-7.8); NEUTROPHIL % 80.2 %; NRBC % 0 /100WBC (0-0.00); PLATELET COUNT 571 K/uL (150-450); RBC 3.08 M/uL (3.50-5.50); RDW-CV 18.6 % (11.9-14.6); WBC 12.3 K/uL (4.0-11.0)
[2016-05-20 06:05] LABS: INR - (THERAPEUTIC) 1.1 (0.9-1.1); PROTIME 11.2 SECONDS (9.6-11.1)
[2016-05-20 06:18] LABS: ALBUMIN 2.3 gm/dL (3.5-5.0); ALK PHOS 85 IU/L (33-138); ALT 14 IU/L (12-78); BLOOD UREA NITROGEN 44 mg/dL (6-24); CALCIUM 8.5 mg/dL (8.5-10.5); CHLORIDE 103 mMol/L (96-110); CO2 33 mMol/L (22-32); CREATININE 0.9 mg/dL (0.5-1.1); ESTIMATED GFR (MDRD EQUATION) > 60; SODIUM 141 mMol/L (135-145); TOTAL PROTEIN 6.2 g/dL (6.0-8.4)
[2016-05-20 06:19] LABS: ANION GAP 9.2 (10.0-19.0); AST 38 IU/L (10-40); POTASSIUM 4.2 mMol/L (3.7-5.1); TOTAL BILIRUBIN 0.7 mg/dL (0.0-1.5)
--- NOTE | 2016-05-20 12:25 | NUR ---
Student nurse provided patient cares from 0600 to 1215. Harsh Cannon RN, [facility] Instructor
--- NOTE | 2016-05-20 14:39 | NUR ---
ST attempted to see pt. x2 in a.m. Nsg. in room at [address] attempted to see after procedure completed at 0927 and in with pt. for approximately 5 minutes. Pt. reported back and stomach pain and scheduled for sx today to assist with cont'd fluid on lungs. Pt. refused tx activities at this time 2/2 on-going pain. Nsg. later present and reported pt. to transfer to sx soon. Pt. seen again attempted to see pt. again at 1417. Pt. lethargic and c/o pain. Pt. refused tx services and agreed need for pain meds if possible. Txst notifed nsg. Pt. educ. ST plan to cont. tomorrow and pt. agreed with plan. ST cont. with POC.
--- NOTE | 2016-05-20 16:35 | NUR ---
Significant Event: PT ALERT, FORGETFUL. TRIED TO TITRATE O2 DOWN THIS AM, PT WAS SAT 74% ON 1L, INCREASED TO 3L AFTER THAT. HAD L CHEST TUBE PLACED TODAY, TO LIS- 85ML OUTPUT THIS SHIFT. MIDLINE INCISION, WOC RN CHANED VAC DRESSING TODAY. MARISCAL PATENT- 650ML URINE OUTPUT. MIDLINE TO MELANIE, GOOD BLOOD RETURN. D51/2NS RUNNING AT 40ML/HR, SALINE LOCK AFTER THIS BAG. STARTED ON CLEAR LIQUID DIET, CAN ADVANCE TOLERATED. REMAINS IN CONTACT ISOLATION FOR MRSA TO WOUND. PT HAVING LOTS OF PAIN, NORCO 2 TABS AT 1438, DILAUDID IV AT 1518. STILL RATING PAIN 10/10- MD NOTIFIED, ADDITIONAL DOSE OF DILAUDID ORDERED AND GAVE AT 1620. MD WILL BE ROUNDING TO ADDRESS PAIN MEDICATIONS. PT SISTER AT BEDSIDE. Follow up: CONTINUE TO MONITOR, NEED FOR MARISCAL?, INCREASE ACTIVITY, DIET
--- NOTE | 2016-05-21 05:26 | NUR ---
SIGNIFICANT EVENT: Patient sleepy but responds to voice, answers questions appropriately. Dilaudid DOOR FRAMER - 0.1 mg bolus, 15 min lockout, 0.2 mg continuous, no max. Lackey is patent, draining clear yellow urine - PATIENT EXPRESSED WANTING TO KEEP THE INDWELLING CATHETER RATHER THAN GOING BACK TO STRAIGHT CATHING, ENCOURAGED HER TO EXPRESS THIS TO MD. L) chest tube to intermittent low suction. L) midline infusing D5 1/2NS at 40 - only 1 liter to be infused, still infusing - intermittent IV antibiotics are both compatible with Dilaudid and D5 1/2. VSS on 3L, reduced to 1L at approx 0415 - sats remain above 91. Reposition as tolerated. Clear liquids advance as marjan. Cooperative with cares.
[2016-05-21 06:45] LABS: BASOPHIL % 0.2 %; HEMATOCRIT 29.7 % (33.0-46.0); HEMOGLOBIN 9.1 g/dL (10.0-15.0); IMMATURE GRANULOCYTE # 0.2 K/uL (0.0-0.3); IMMATURE GRANULOCYTE % 1.7 %; LYMPHOCYTE # 0.6 K/uL (0.8-4.0); LYMPHOCYTE % 4.5 %; MCH 28.7 pg (27.0-34.0); MCHC 30.6 gm/dL (32.0-36.5); MCV 93.7 fl (83.0-98.0); MONOCYTE # 1.1 K/uL (0.0-1.0); MPV 9.3 fl (9.4-12.4); NEUTROPHIL # (ANC) 10.8 K/uL (1.8-7.8); NEUTROPHIL % 84.6 %; NRBC % 0 /100WBC (0-0.00); PLATELET COUNT 634 K/uL (150-450); RBC 3.17 M/uL (3.50-5.50); RDW-CV 17.7 % (11.9-14.6); WBC 12.7 K/uL (4.0-11.0)
[2016-05-21 07:01] LABS: ALBUMIN 2.1 gm/dL (3.5-5.0); ANION GAP 11.2 (10.0-19.0); CALCIUM 8.8 mg/dL (8.5-10.5); PHOSPHORUS 2.4 mg/dL (2.5-4.9)
[2016-05-21 07:02] LABS: POTASSIUM 4.2 mMol/L (3.7-5.1)
--- NOTE | 2016-05-21 11:10 | NUR ---
Spoke with Lucia Terry, patient will not be able to go to [facility] until chest tubes are out. Could be early next week.
--- NOTE | 2016-05-21 14:30 | NUR ---
A-NUTRITION F/U 05/18 SWALLOW STUDY COMPLETED; DIET ADVANCED FROM PUREED TO MECH. SOFT 05/20-CHEST TUBE PLACE TO L)SIDE. 05/16 LAST BM; BOWEL MEDS WOUND VAC TO ABD WOUND; IN ISOLATION D/T MRSA IN THE WOUND CBW 92.1 KG; ADMIT WT: 92.3 KG LABS: NA 141, K+ 4.2, GLU 115, BUN 41, NAVY SENIOR OFFICER 1.0, ALB 2.1 MEDS: DULCOLAX, MOM, REGLAN, NORCO, ZOFRAN DIET RX: CLEAR LIQUIDS. PO INTAKE HAS BEEN 0-25%. DISCUSSED SUPPLEMENT OPTION WHILE ON CLEAR LIQUIDS, WITH PT. PT AGREEABLE TO TRYING ENSURE CLEAR TID. PT WAS TAKING HER STRAWBERRY ENSURE VERY WELL, PRIOR TO DIET CHANGE. PT WOULD LIKE TO RESUME THE ENSURE WHEN DIET ADVANCES. EST NUTR NEEDS: 8917-5947 KCALS AND 89-118 GM PROTEIN D-AT NUTRITION RISK W/INADEQUATE NUTRIENT INTAKE R/T DECREASED APPETITE, RECENT CHEST TUBE PLACEMENT AEB PT REPORT, INTAKE RECORDS. I-1)START ENSURE CLEAR TID W/MEALS, WHILE PT IS ON A CLEAR LIQUID DIET 2)RESTART STRAWBERRY ENSURE TID AND MAGIC CUP BID, WHEN DIET RESUMES M/E-GOAL: PO INTAKE >/=50% BY NEXT F/U 1)F/U PO INTAKE, SUPPLEMENT, DIET RX, AND POC IN 3-5 DAYS 2)ASSIST NEEDED
--- NOTE | 2016-05-21 16:15 | NUR ---
Significant event: Patient is alert and oriented. VSS. On 1 liter/NC.Has Midline to left upper arm, good blood return, does flush sluggish. Has DIRECTOR AMBULATORY dilaudid, 0.2 continuous, 0.1 bolus, 15 min lockout. Has been controlled pretty well today. Has chest tube to left chest, is on low continous suction. Dressing clean, dry, intact. Has wound vac to abdomen. Has tolerated clear liquids today. Is advance as tolerated. Will see if patient wants more for supper. Patient is to ambulate tid. Lackey in place and is patent, Plan is to keep it in place. Cooperative with cares.
--- NOTE | 2016-05-22 03:59 | NUR ---
Significant Event:PT ALERT CAN BE CONFUSED AT TIMES EASILY REORIENTED.PT VSS DURING SHIFT. TAKES MEDICATOIN WHOLE. CHEST TUBE TO LEFT LATERAL CHEST PATENT WITH LITTLE TO NO OUTPUT. MARISCAL CATH CHANGED AT 2200 DUE TO COMING OUT. PT TOLERATED WELL. WOUND VAC TO ABDOMEN IN PLACE. CONTINUES TO BE ON ISOLATION FOR MRSA IN THE WOUND. CONTINUES TO HAVE WARD SERVICE SUPERVISOR DILAUDID. 0.2MG CONTINOUS, 0.1 DEMAND, AND 15 MIN LOCKOUT. PT HAS SLEPT WELL AND DENIES PAIN DURING SHIFT. Follow up:
[2016-05-22 06:12] LABS: HEMATOCRIT 30.1 % (33.0-46.0); HEMOGLOBIN 9.3 g/dL (10.0-15.0)
--- NOTE | 2016-05-22 17:01 | NUR ---
Significant event: Patient is alert and oriented, VSS. ON 1 lter per NC. REMOTE ENCODING CENTER MANAGER pump is now demand only, set at 0.1mg q 15 min. Remains in isolation for MRSA in abdominal wound-wound vac in place. Chest tube remains in left chest. Needs to try to ambulate and move more. Use 1-2 assist, walker and gait belt. Has increased diet to soft. Did tolerate chicken noodle soup for lunch. Midline to left upper arm. Takes meds whole. Cooperative with cares.
--- NOTE | 2016-05-23 03:17 | NUR ---
Significant Event: A&Ox3, VSS on 1L O2. Grunting with breathing. Dilaudid TIRE FABRICATOR with 0.1mg demand only. Wound vac to abdomen with no complications. Left chest tube to suction with no complications. Lackey patent. Transfers with 2PA to help manage cords. Patient leans forward with transfers. [place] given X2 for breakthrough pain on TIRE FABRICATOR. Advanced to regular diet. Last BM 05/19/16. Follow up: continue with plan of care.
--- NOTE | 2016-05-23 17:20 | NUR ---
A&OX3, Vital signs stable. Back and forth between Room Air and 1-2L of O2. Labored and grunted breathing. Discontinued LITIGATION ASSOCIATE at 1600. Last norco at 1515. Wound vac drsg changed with no complications and 110mL output. Chest tube on left lateral chest with no complications and 260ml output. Lackey patent with 500mL output. Transfers with 2PA with walker and gaitbelt. Diet changed to mechanical soft diet. Gave PRN suppository at 1515. Up to chair. No BM but passing gas. Continue with plan of care.
--- NOTE | 2016-05-24 03:06 | NUR ---
Significant Event: A&Ox3, VSS on 1L O2. ABD more distended than last night and slightly firm. Hypoactive bowl sounds. Patient states it is a little more tender but denies any nausea. PO [place] and IV dilaudid for pain control, refer to eMAR for administrations. Repositioned Q2-4hrs. CT intact to suction with no complications. Woundvac to ABD intact with no complications. Lackey patent. Patient needs encouragement to drink PO fluids. EtCO2 can be shut off at 0400. Follow up: monitor ABD.
[2016-05-24 06:10] LABS: BASOPHIL # 0.1 K/uL (0.0-0.2); BASOPHIL % 0.5 %; EOSINOPHIL # 0.3 K/uL (0.0-0.5); EOSINOPHIL % 3.5 %; HEMATOCRIT 28.6 % (33.0-46.0); HEMOGLOBIN 8.9 g/dL (10.0-15.0); IMMATURE GRANULOCYTE # 0.5 K/uL (0.0-0.3); IMMATURE GRANULOCYTE % 4.8 %; LYMPHOCYTE % 9.9 %; MCH 28.3 pg (27.0-34.0); MCHC 31.1 gm/dL (32.0-36.5); MCV 91.1 fl (83.0-98.0); NEUTROPHIL % 71.3 %; NRBC % 0 /100WBC (0-0.00); PLATELET COUNT 663 K/uL (150-450); RBC 3.14 M/uL (3.50-5.50); RDW-CV 17.4 % (11.9-14.6); WBC 9.8 K/uL (4.0-11.0)
[2016-05-24 06:24] LABS: ANION GAP 9.8 (10.0-19.0); BLOOD UREA NITROGEN 37 mg/dL (6-24); CALCIUM 8.4 mg/dL (8.5-10.5); CHLORIDE 105 mMol/L (96-110); CO2 30 mMol/L (22-32); CREATININE 0.9 mg/dL (0.5-1.1); ESTIMATED GFR (MDRD EQUATION) > 60; SODIUM 141 mMol/L (135-145)
[2016-05-24 06:27] LABS: POTASSIUM 3.8 mMol/L (3.7-5.1)
--- NOTE | 2016-05-24 17:10 | NUR ---
A-NUTRITION F/U HYPOACTIVE BS. NO C/O NAUSEA. (+)BM TODAY. WOUND VAC TO ABD. LABS: NA 141, K+ 3.8, GLU 94, BUN 37, ACCOUNTING CLERK 0.9 MEDS: COCHICINE, DILAUDID, NORCO VISITED W/PT TODAY RE: SUPPLEMENTS AND APPETITE. PT FEELS LIKE HER APPETITE IS SLOWLY IMPROVING. SHE REPORTS THAT SHE HAD AN OMELET, COFFEE, AND ENSURE FOR BREAKFAST. SHE DID NOT EAT MUCH FOR LUNCH, BUT WAS DRINKING HER ENSURE. SHE WOULD RATHER NOT HAVE THE MAGIC CUPS. OFFERED HER ENSURE PUDDING, AND SHE WOULD LIKE TO TRY THAT. DIET RX: MECHANICAL SOFT W/STRAWBERRY ENSURE ENLIVE TID AND MAGIC CUP BID PO INTAKE SIPS/BITES-25% D-AT NUTRITION RISK W/INADEQUATE INTAKE OF NUTRIENTS R/T DECREASED APPETITE, ALTERED GI FXN AEB INTAKE RECORDS, PT REPORT, RECENT GI SURGERY. I-1)CONTINUE W/STRAWBERRY ENSURE ENLIVE TID 2)D/C MAGIC CUPS BID 3)ADD ENSURE PUDDING BID AT L/D 4)IF PO INTAKE DOES NOT IMPROVE, CONSIDER ENTERAL NUTRITION M/E-GOAL: PO INTAKE >/=50% 1)F/U PO INTAKE, SUPPLEMENT, GI, SKIN, AND POC IN 3-5 DAYS 2)ASSIST NEEDED
--- NOTE | 2016-05-24 17:12 | NUR ---
Patient A&Ox3. VSS and on 0.5L of O2. Patient in better spirits today. Last PO norco given prior to shift change. 2PA with walker and gaitbelt. CT output was 320mL and woundvac output was 90mL (vac output is not level). Encourage patient to drink fluids. Up to chair and back to bed. Midline to right upper arm. Saline locked. Tolerating mechanical diet with poor appetite. Lackey draining yellow urine with 425mL for UO.
--- NOTE | 2016-05-25 05:22 | NUR ---
Significant Event: Patient alert and orientedX4. Up with heavy 2 person assist. Up in chair most of day yesterday. MIdline to L) upper arm, saline locked. Wound vac to abdomen. L) lateral chest tube intact. Hypoactive bowel sounds. Labored breathing noted. [place] given at 0450 and repositioned every 2-3 hours. ON hazzardous drug precautions. Contact isolation for MRSA in abd wound. Having lots of pain with movement. on 0.5L oxygen. Vitals stable. Lackey in place. Follow up: Monitor pain
--- NOTE | 2016-05-25 15:22 | NUR ---
Significant Event: Pt c/o intermittent left side pain, good relief with pain meds. up to recliner with 2 assist. Chest tube to left lung, small amt of bloody drainage noted. Wound vac to lower abd d/i. Lackey draining yellow urine. Had a midline IV to left arm. Dulcolox suppository given x1, had 1 small bm. In contact isolation for MRSA. Poor appetite. Follow up:
--- NOTE | 2016-05-26 05:30 | NUR ---
Significant Event: Patient alert and oriented X4. Up with 2person assist. Up in chair most of the day. MIdline to L) upper arm saline locked. Chest tube to L) lateral chest with 190out. WOund vac to abdomen MRSA positive. Lackey in place. 4 BMs this shift. Soft. [place] given around 0130. Relief noted. Reposition every 2 hours. On room air. Vitals stable. Follow up: Monitor pain/chest tube output
[2016-05-26 05:37] LABS: BASOPHIL # 0.1 K/uL (0.0-0.2); BASOPHIL % 0.5 %; EOSINOPHIL # 0.3 K/uL (0.0-0.5); EOSINOPHIL % 2.9 %; HEMATOCRIT 28.2 % (33.0-46.0); HEMOGLOBIN 8.7 g/dL (10.0-15.0); IMMATURE GRANULOCYTE # 0.5 K/uL (0.0-0.3); IMMATURE GRANULOCYTE % 4.9 %; LYMPHOCYTE # 0.9 K/uL (0.8-4.0); LYMPHOCYTE % 8.6 %; MCHC 30.9 gm/dL (32.0-36.5); MCV 90.7 fl (83.0-98.0); MONOCYTE # 1.1 K/uL (0.0-1.0); MONOCYTE % 10.9 %; MPV 9.1 fl (9.4-12.4); NEUTROPHIL # (ANC) 7.4 K/uL (1.8-7.8); NEUTROPHIL % 72.2 %; NRBC % 0 /100WBC (0-0.00); PLATELET COUNT 652 K/uL (150-450); RBC 3.11 M/uL (3.50-5.50); RDW-CV 18.1 % (11.9-14.6); WBC 10.3 K/uL (4.0-11.0)
[2016-05-26 05:55] LABS: ANION GAP 13.6 (10.0-19.0); BLOOD UREA NITROGEN 33 mg/dL (6-24); CALCIUM 8.6 mg/dL (8.5-10.5); CHLORIDE 105 mMol/L (96-110); CO2 29 mMol/L (22-32); CREATININE 0.7 mg/dL (0.5-1.1); ESTIMATED GFR (MDRD EQUATION) > 60; POTASSIUM 3.6 mMol/L (3.7-5.1); SODIUM 144 mMol/L (135-145)
--- NOTE | 2016-05-26 16:11 | NUR ---
Significant Event: Pt c/o intermittent generalized pain, good relief with [place]. Up in recliner most of the day. Inc lrg liquid bm x2. [place] sore and slightly reddened, aloe vesta applied. Lackey draining babar urine. Chest tube to left lung. Wound vac to lower abd. 2 assist transfer. Ate all of breakfast. Follow up:
[2016-05-27 05:37] LABS: BASOPHIL # 0.1 K/uL (0.0-0.2); BASOPHIL % 0.5 %; EOSINOPHIL # 0.1 K/uL (0.0-0.5); EOSINOPHIL % 1.3 %; HEMATOCRIT 27.9 % (33.0-46.0); HEMOGLOBIN 8.9 g/dL (10.0-15.0); IMMATURE GRANULOCYTE # 0.4 K/uL (0.0-0.3); IMMATURE GRANULOCYTE % 3.7 %; MCH 28.4 pg (27.0-34.0); MCHC 31.9 gm/dL (32.0-36.5); MCV 89.1 fl (83.0-98.0); MONOCYTE # 1.1 K/uL (0.0-1.0); MONOCYTE % 11.4 %; NEUTROPHIL % 73.1 %; NRBC % 0 /100WBC (0-0.00); PLATELET COUNT 644 K/uL (150-450); RBC 3.13 M/uL (3.50-5.50); RDW-CV 17.8 % (11.9-14.6); WBC 9.5 K/uL (4.0-11.0)
[2016-05-27 05:51] LABS: ANION GAP 12.5 (10.0-19.0); BLOOD UREA NITROGEN 27 mg/dL (6-24); CALCIUM 8.5 mg/dL (8.5-10.5); CHLORIDE 105 mMol/L (96-110); CO2 29 mMol/L (22-32); CREATININE 0.6 mg/dL (0.5-1.1); ESTIMATED GFR (MDRD EQUATION) > 60; POTASSIUM 3.5 mMol/L (3.7-5.1); SODIUM 143 mMol/L (135-145)
--- NOTE | 2016-05-27 07:02 | NUR ---
Significant Event: Patient alert and oriented X4. Up with 2 person assist. No BM this shift. Lackey in place. [place] given last around 0115. Midline to L) upper arm. Saline locked. Chest tube in place and canister changed. Wound vac in place to abdomen MRSA positive. Mechanical soft diet. Reposition every 2 hours. Follow up: [place] chest tube
--- NOTE | 2016-05-27 12:25 | NUR ---
Neuro assessment recorded at 1130 was actually completed at 0730. Respiratory assessment recorded at 1131 was actually completed at 0730. Cardiovascular assessment recorded at 1136 was actually completed at 0730. Integumentary assessment recorded at 1137 was actually completed at 0730. Musculoskeletal assessment recorded at 1142 was actually completed at 0730. Gastrointestinal assessment recorded at 1144 was actually completed at 0730. Genitourinary assessment recorded at 1146 was actually completed at 0730.
--- NOTE | 2016-05-27 12:34 | NUR ---
Student nurse provided patient cares from 0600 to 1230. Harsh Cannon RN, [facility] Instructor
--- NOTE | 2016-05-27 13:31 | NUR ---
A-NUTRITION F/U WOUND VAC TO ABD. CT IN PLACE. (+)BM LABS: NA 143, K+ 3.5, GLU 90, BUN 27, TRANSMISSION LINE ENGINEER 0.6 MEDS: [place] DIET RX: MECHANICAL SOFT WITH STRAWBERRY ENSURE ENLIVE TID W/MEALS. PO INTAKE REMAINS POOR. DOES DRINK STRAWBERRY ENSURE (PROVIDING 1050 KCALS AND 60 GM PROTEIN). EST NUTR NEEDS: 9191-2622 KCALS AND 89-118 GM PROTEIN D-AT NUTRITION RISK W/INADEQUATE INTAKE OF NUTRIENTS R/T POOR APPETITE, ALTERED GI FXN AEB PT REPORT, INTAKE RECORDS. I-1)CONTINUE ENSURE ENLIVE (STRAWBERRY) TID W/MEALS 2)IF DESIRED, RECOMMEND PLACING A DOBHOFF AND STARTING PROMOTE AT A GOAL RATE OF 45 ML/HR (PROVIDING 1080 KCALS, 68 GM PROTEIN, AND 906 ML FREE H20). THIS, ALONG WITH ENSURE ENLIVE THAT PT IS DRINKING, WILL MEET PT'S NUTRIENT NEEDS M/E-GOAL: PO INTAKE >/=50% BY NEXT F/U 1)F/U PO INTAKE, SUPPLEMENT, GI, AND POC IN 3-4 DAYS 2)ASSIST NEEDED
--- NOTE | 2016-05-27 13:46 | NUR ---
IF DESIRED, PT WOULD BENEFIT FROM ENTERAL NUTRITION. PO INTAKE IS POOR; SHE IS DRINKING ENSURE ENLIVE TID . IF DESIRED, RECOMMEND PLACING A DOBHOFF AND STARTING PROMOTE AT A GOAL RATE OF 45 ML/HR, TO SUPPLEMENT ORAL INTAKE.
--- NOTE | 2016-05-27 17:22 | NUR ---
PT UP IN CHAIR MOST OF DAY. COMPLAINTS OF PAIN IN CHEST TUBE SITE AREA. NORCO GIVEN LAST AT 1130 AND PAIN RELIEF WAS SUFFICIENT. PT AAOX3. 2 LARGE INC WATERY BMS. PERIAREA SORE AND SLIGHTLY REDDENED. ALOE VESTA APPLIED. MARISCAL DRAINING YELLOW URINE. CHEST TUBE TO LEFT LUNG WITH 118 OUTPUT. WOUND VAC TO LOWER ABD WITH 25 OUTPUT. 2A TRANSFER WTIH WALKER AND GAITBELT. EATING POOR FOR BREAKFAST AND LUNCH. MD ORDER ZOFRAN 4MG 1 HOUR PRIOR TO ALL WOUND VAC CHANGES.
[2016-05-28 05:59] LABS: ANION GAP 9.5 (10.0-19.0); BLOOD UREA NITROGEN 23 mg/dL (6-24); CALCIUM 8.4 mg/dL (8.5-10.5); CHLORIDE 106 mMol/L (96-110); CO2 29 mMol/L (22-32); CREATININE 0.7 mg/dL (0.5-1.1); ESTIMATED GFR (MDRD EQUATION) > 60; POTASSIUM 3.5 mMol/L (3.7-5.1); SODIUM 141 mMol/L (135-145)
--- NOTE | 2016-05-28 07:27 | NUR ---
Significant Event: Pt alert and oriented. C/o pain at chest tube insertion site, [place] and dilaudid given x 2. Remains in isolation for MRSA in abd wound. Incont of stool x 1 and has been using bedpan. Obtained stool for c-diff which was negative. Repositioned q 2 hours. Follow up: Cont to monitor.
--- NOTE | 2016-05-28 12:42 | NUR ---
ST attempted to see pt. x2 sessions in a.m. and p.m. Pt. refused both sessions 2/2 cont'd nausea [address] ST agreed and plan to cont. when pt. status improves.
--- NOTE | 2016-05-29 05:12 | NUR ---
MRSA ISOLATION ADMIT 05/06 FOR HEMORRAHGIC SHOCK AFTER BOWEL RESECTION WITH ABD DIHISCENCE AND POSSIBLE SPLEENIC RUPTURE, CHEST TUBE IN PLACE W/DSG CDI TO CONT SUCTION AND 100ML OUT THIS SHIFT, WOUND VAC TO ABD <20ML OUT THIS SHIFT, MARISACL IN PLACE, POOR PO INTAKE AND DOESNT TOLERATE MECH SOFT DIET WELL, NAUSEA AT BEGINNING OF SHIFT AND GIVEN ZOFRAN IVP@1930 WITH GOOD RESULTS, NORCO FOR PAIN LD@0515, INC OF BOWEL DUE TO XL BOUGHTS OF DIARRHEA BUT TESTS NEGATIVE FOR CDIFF, MELANIE MIDLINE SALINE LOCKED, REDNESS TO COCCYX AND ALOE VESTA USED AND PATIENT TIPPED Q2HRS, GENERALIZE SEVERE WEAKNESS. UNSURE OF DC PLAN AT THIS TIME
[2016-05-29 07:05] LABS: BASOPHIL # 0.1 K/uL (0.0-0.2); BASOPHIL % 0.5 %; EOSINOPHIL # 0.2 K/uL (0.0-0.5); EOSINOPHIL % 1.6 %; HEMATOCRIT 30.8 % (33.0-46.0); HEMOGLOBIN 9.4 g/dL (10.0-15.0); IMMATURE GRANULOCYTE # 0.1 K/uL (0.0-0.3); IMMATURE GRANULOCYTE % 1.3 %; LYMPHOCYTE # 0.9 K/uL (0.8-4.0); LYMPHOCYTE % 9.1 %; MCH 27.8 pg (27.0-34.0); MCHC 30.5 gm/dL (32.0-36.5); MCV 91.1 fl (83.0-98.0); MONOCYTE % 9.9 %; MPV 8.6 fl (9.4-12.4); NEUTROPHIL # (ANC) 7.8 K/uL (1.8-7.8); NEUTROPHIL % 77.6 %; NRBC % 0 /100WBC (0-0.00); PLATELET COUNT 645 K/uL (150-450); RBC 3.38 M/uL (3.50-5.50); RDW-CV 18.1 % (11.9-14.6); WBC 10.1 K/uL (4.0-11.0)
[2016-05-29 07:17] LABS: ANION GAP 12.5 (10.0-19.0); BLOOD UREA NITROGEN 19 mg/dL (6-24); CALCIUM 8.4 mg/dL (8.5-10.5); CHLORIDE 106 mMol/L (96-110); CO2 29 mMol/L (22-32); CREATININE 0.7 mg/dL (0.5-1.1); ESTIMATED GFR (MDRD EQUATION) > 60; SODIUM 144 mMol/L (135-145)
[2016-05-29 07:18] LABS: POTASSIUM 3.5 mMol/L (3.7-5.1)
--- NOTE | 2016-05-29 12:16 | NUR ---
Significant event: Patient is alert and oriented x3. VSS. on room air. Has chest tube to left chest and wound vac to abdomen. Lackey in place and is patent. Has had bouts of diarrhea, wearing a pull up pad for protection, comes on suddenly and patient isn't always able to control it. Had pain med early this morning. Up in chair. Ambulated in room x2. Able to eat more breakfast today. NO complaints of nausea.
--- NOTE | 2016-05-29 18:00 | NUR ---
Significant Event: Patient is alert and oriented x3. VSS and on RA. Chest tube in place on the L)side- had 110 out. Wound VAC to the abdomen- <5ml out if any. Lackey in place. Sediment and dark colored urine. Midline to the left upper arm, SL. Mechanical soft diet with extra gravy. Up with 1-2PA. Has been having diarrhea. Started on floastor and given extra dose of potassium. In isolation for MRSA. PT and OT working with the patient. [place] given x1, last around 1400. Relief noted. Was (-) for C.Diff. Cooperative with cares.
--- NOTE | 2016-05-30 03:51 | NUR ---
Significant Event: Patient alert and oriented X4. Up with 1person assist and walker. Wound vac to abdomen, had 25 out, chest tube to L) lateral chest had 30ml out, and dunn had 500 out. Repositioned patient every 2 hours. Aloe vesta to buttocks with stools. Lomotil given after loose BM, orders to give after loose stools. [place] given X1 at 2150. Relief noted. Vitals stable and on room air. Routine breathing treatments. Patinet states she is feeing better. Follow up: Monitor pain
--- NOTE | 2016-05-30 09:09 | NUR ---
A - NUTRITION F/U. K+ 3.5, GLU 175, BUN/PARAMEDIC RN 19/0.7. WT STABLE. PT W/ WOUND VAC TO ABD. DIET: MECH SOFT W/ ENSURE TID. INTAKE 10-25%. D - AT RISK W/ INADEQUATE ORAL INTAKE R/T DECREASED APPETITE AEB INTAKE RECORD. I - GOAL: INCREASED NUTRIENT INTAKE. M/E - 1) CONSIDER EN D/T POOR ORAL INTAKE. WOULD REC PROMOTE AT 45 ML/HR VIA DOBHOFF. 2) CONT TO ENCOURAGE ORAL INTAKE. 3) WILL F/U IN 3-5 DAYS.
--- NOTE | 2016-05-30 15:44 | NUR ---
Significant event: Patient is alert and oriented x3. VSS. on room air.Midline to left upper arm,sluggish to flush, no blood return. Lg stool today, more formed, not liquid. Up in chair most of day. Lackey in place and is patent. Wound vac to abdomen, dressing changed today. In isolation for MRSA in abd wound. Has chest tube to left chest with 130 ml out. No [place] given today. Has eaten better today. Ambulated with therapy in hallway. Pleasant and cooperative with cares.
--- NOTE | 2016-05-31 04:12 | NUR ---
Significant Event: Patient alert and oriented X4. UP with 1-2 person assist, walker and gait belt. Chest tube to L) lateral chest had 40 out. WOund vac with MRSA had 95 out. Contact isolation. [place] in place with sediment noted. 350 out. Reposition every 2 hours. 2 loose BMs this shift. Lomotil to give with loose BMs. Given last around 2200. Nystatis swish and spit. Patient has dentures. Midline to L) upper arm saline lock. Hazardous drug precautions for colchicine. Had a peanut butter toast snack aroudn medication time.Patient enjoyed it. [place] given X1 at 2200. Follow up: Monitor CT output.
[2016-05-31 05:51] LABS: ANION GAP 11.2 (10.0-19.0); BLOOD UREA NITROGEN 15 mg/dL (6-24); CHLORIDE 107 mMol/L (96-110); CO2 27 mMol/L (22-32); CREATININE 0.6 mg/dL (0.5-1.1); ESTIMATED GFR (MDRD EQUATION) > 60
[2016-05-31 05:52] LABS: POTASSIUM 3.2 mMol/L (3.7-5.1); SODIUM 142 mMol/L (135-145)
--- NOTE | 2016-05-31 15:22 | NUR ---
SIGNIFICANT EVENT: PATIENT ALERT AND ORIENTED X 4. UP WITH 1-2 PERSON ASSIST USING WALKER OR GAITBELT. REPOSITIONING EVERY [address] WITH SEDIMENT NOTED. CONTACT ISOLATION W/ HISTORY OF MRSA. PATIENT DID NOT COMPLAIN OF PAIN DURING DAY. COMPLAINED THAT SHE WAS OUT OF BREATH. ATE ALL OF BREAKFEAST AND LUNCH. PATIENT WEIGHED AT 87.2 KG. RESTING IN CHAIR OR BED ALL DAY. NO BM DURING SHIFT. FOLLOW UP: CONTINUE TO MONITOR
--- NOTE | 2016-05-31 19:34 | NUR ---
I HAVE REVIEWED AND AGREE WITH CHARTING DONE BY SN KASEY.
--- NOTE | 2016-06-01 04:57 | NUR ---
Significant Event: A/O X3 AND COOPERATIVE WITH CARES. C/O STOMACH AND BOTTOM DISCOMFORT AND GAVE TYLENOL AT 0131 WITH RELIEF NOTED. PATIENT HAD MULTIPLE STOOLS OVERNIGHT. GAVE LOMOTIL X3 LAST AT 0215. BOTTOM IS VERY RED AND EXCORIATED. HAVE APPLIED LOTS OF ALOE WITH EACH STOOLING, HAVE ALSO LEFT ATTENDS OFF OVERNIGHT TO AIR OUT AREA. WOUND VAC TO ABDOMEN IS INTACT AND NO REAL OUTPUT NOTED. CHEST TUBE TO L) LATERAL CHEST AREA INTACT, NEW COLLECTION CONTAINER APPLIED AND CONTINUES ON SUCTION; HAD 27ML OF OUTPUT. MARISCAL IN PLACE AND DRAINING YELLOW URINE WITH SEDIMENT. MIDLINE IV TO L) UPPER ARM FLUSHES WELL WITH NO BLOOD RETURN. LOW GRADE TEMP THIS SHIFT WITH MAX TEMP OF 100.1. PATIENT FAIRLY EXAUSTED AFTER THE MULTIPLE STOOLINGS. CONTINUES IN CONTACT ISOLATION FOR MRSA IN ABDOMINAL WOUND, ALSO HAZARDOUS DRUG PRECAUTIONS. Follow up:
[2016-06-01 06:33] LABS: BASOPHIL # 0.1 K/uL (0.0-0.2); BASOPHIL % 0.7 %; EOSINOPHIL # 0.1 K/uL (0.0-0.5); EOSINOPHIL % 0.4 %; HEMATOCRIT 31.4 % (33.0-46.0); HEMOGLOBIN 9.8 g/dL (10.0-15.0); IMMATURE GRANULOCYTE # 0.2 K/uL (0.0-0.3); IMMATURE GRANULOCYTE % 1.3 %; LYMPHOCYTE # 1.6 K/uL (0.8-4.0); LYMPHOCYTE % 11.6 %; MCH 28.2 pg (27.0-34.0); MCHC 31.2 gm/dL (32.0-36.5); MCV 90.5 fl (83.0-98.0); MONOCYTE # 1.4 K/uL (0.0-1.0); MONOCYTE % 10.3 %; MPV 9.3 fl (9.4-12.4); NEUTROPHIL # (ANC) 10.2 K/uL (1.8-7.8); NEUTROPHIL % 75.7 %; NRBC % 0 /100WBC (0-0.00); PLATELET COUNT 625 K/uL (150-450); RBC 3.47 M/uL (3.50-5.50); RDW-CV 18.4 % (11.9-14.6); WBC 13.5 K/uL (4.0-11.0)
[2016-06-01 06:43] LABS: ANION GAP 13.6 (10.0-19.0); BLOOD UREA NITROGEN 18 mg/dL (6-24); CALCIUM 7.9 mg/dL (8.5-10.5); CHLORIDE 107 mMol/L (96-110); CO2 26 mMol/L (22-32); CREATININE 0.7 mg/dL (0.5-1.1); ESTIMATED GFR (MDRD EQUATION) > 60; SODIUM 143 mMol/L (135-145)
[2016-06-01 06:45] LABS: POTASSIUM 3.6 mMol/L (3.7-5.1)
--- NOTE | 2016-06-01 15:56 | NUR ---
Significant Event: pt alert but gets very fatigued. up in the recliner most of the afternoon. chest tube intact drained 62cc. louise here and stripped the tubing. dunn cath present drained 250cc babar urine. no drainage in the wound vac. pt eats some breakfast but refused lunch. takes in some fluids. no lomotil given 2 stools last on gelatin like. Follow up:
--- NOTE | 2016-06-02 04:42 | NUR ---
Significant Event:Patient having quite a bit of pain throughout the night. Diluadid 0.2mg given twice-last at 0335. Repositioned q 2hours. 275 out of dunn, 60 out of chest tube, wound vac with 10 out, she also had a large loose stool. Follow up: Continue to monitor and assist with cares.
[2016-06-02 06:36] LABS: BASOPHIL % 0.4 %; EOSINOPHIL # 0.1 K/uL (0.0-0.5); EOSINOPHIL % 0.8 %; HEMOGLOBIN 9.6 g/dL (10.0-15.0); IMMATURE GRANULOCYTE # 0.1 K/uL (0.0-0.3); IMMATURE GRANULOCYTE % 0.7 %; LYMPHOCYTE # 1.3 K/uL (0.8-4.0); LYMPHOCYTE % 11.4 %; MCV 90.4 fl (83.0-98.0); MONOCYTE # 1.2 K/uL (0.0-1.0); MONOCYTE % 10.4 %; MPV 9.2 fl (9.4-12.4); NEUTROPHIL # (ANC) 8.6 K/uL (1.8-7.8); NEUTROPHIL % 76.3 %; NRBC % 0 /100WBC (0-0.00); PLATELET COUNT 589 K/uL (150-450); RBC 3.43 M/uL (3.50-5.50); WBC 11.3 K/uL (4.0-11.0)
[2016-06-02 06:53] LABS: ALK PHOS 101 IU/L (33-138); ALT 14 IU/L (12-78); BLOOD UREA NITROGEN 17 mg/dL (6-24); CHLORIDE 107 mMol/L (96-110); CO2 28 mMol/L (22-32); CREATININE 0.6 mg/dL (0.5-1.1); ESTIMATED GFR (MDRD EQUATION) > 60; SODIUM 143 mMol/L (135-145); TOTAL BILIRUBIN 0.7 mg/dL (0.0-1.5); TOTAL PROTEIN 6.4 g/dL (6.0-8.4)
[2016-06-02 06:54] LABS: ALBUMIN 1.9 gm/dL (3.5-5.0); ANION GAP 11.3 (10.0-19.0); AST 30 IU/L (10-40); POTASSIUM 3.3 mMol/L (3.7-5.1)
--- NOTE | 2016-06-02 18:00 | NUR ---
Significant event: Patient is alert and oriented. VSS. on room air. Midline to Left upper arm, flushes, no blood return. Up in chair. Ate poorly today. Refused lunch and ate about 25% of breakfast. Had 3 loose/muchy stools. Lomotil and Zofran given at 1230. Has chest tube to left chest, wound vac to abdomen, and dunn which is patent. No complaints of pain today. Pt is on [facility] soft diet. 1-2 assist with ambulation. Cooperative with cares.
[2016-06-03 05:49] LABS: BASOPHIL # 0.1 K/uL (0.0-0.2); BASOPHIL % 0.8 %; EOSINOPHIL # 0.1 K/uL (0.0-0.5); EOSINOPHIL % 1.3 %; HEMATOCRIT 32.7 % (33.0-46.0); IMMATURE GRANULOCYTE # 0.1 K/uL (0.0-0.3); IMMATURE GRANULOCYTE % 0.6 %; LYMPHOCYTE # 1.3 K/uL (0.8-4.0); LYMPHOCYTE % 13.5 %; MCH 27.9 pg (27.0-34.0); MCHC 30.6 gm/dL (32.0-36.5); MCV 91.3 fl (83.0-98.0); MONOCYTE # 1.2 K/uL (0.0-1.0); MONOCYTE % 12.6 %; MPV 9.6 fl (9.4-12.4); NEUTROPHIL # (ANC) 6.6 K/uL (1.8-7.8); NEUTROPHIL % 71.2 %; NRBC % 0 /100WBC (0-0.00); PLATELET COUNT 523 K/uL (150-450); RBC 3.58 M/uL (3.50-5.50); RDW-CV 17.8 % (11.9-14.6); WBC 9.3 K/uL (4.0-11.0)
[2016-06-03 06:01] LABS: ANION GAP 11.7 (10.0-19.0); BLOOD UREA NITROGEN 20 mg/dL (6-24); CHLORIDE 109 mMol/L (96-110); CO2 25 mMol/L (22-32); CREATININE 0.8 mg/dL (0.5-1.1); ESTIMATED GFR (MDRD EQUATION) > 60; POTASSIUM 3.7 mMol/L (3.7-5.1); SODIUM 142 mMol/L (135-145)
--- NOTE | 2016-06-03 06:53 | NUR ---
Significant Event: Patient had one loose stool this shift. Started on IV K+ this shift, postassium was 3.3 IV started in right thumb for this infusion. 20 out of chest tube, 0 out of wound vac, 850 in urinary output. [place] 1 tab given at 2049 and diluadid at 0004 for pain at chest tube site. Alert and orientated, pleasant-but doesn't want to move or be repositioned much. Follow up: Continue to monitor.
--- NOTE | 2016-06-03 10:20 | NUR ---
Spoke to Ivania Carrera, patients chest tube has been taken out so can look at placement at [facility]. Patients nurse reported there was a question about transportation and patient wanted to go by ambulance - will have to assess that need. 1425 Spoke to Melody at [facility], faxed referral.
--- NOTE | 2016-06-03 15:54 | NUR ---
Significant Event: Patient alert and oriented. Up to the commode with 2 assist and patient has had 3 loose BM's. Lomotil 1 tab given at 0915. Dr Osman here this morning and dc'd the L) chest tube. Dressing to her L) lateral chest is dry and intact. [place] 1 tab given at 0915 for c/o discomfort. Patient c/o nausea and having dry heaves this morning and received Zofran 4 mg IV at 0955 prior to changing the wound vac by C nurse. Ambulated short distance with PT. K+ level at 3.7 this morning and patient receiving KCL 40 meq IV over 4 hrs. Midline IV to her L) upper arm flushes well but has no blood return. Saline lock to her R) thumb. Follow up:
--- NOTE | 2016-06-04 05:08 | NUR ---
Significant Event: Patient is alert and oriented x 3. On room air. HRs in the 100s-1 teens. SBPs in the 1 teens-140s. Max temp of 101.8 on first assessment. Temp retaken and was 100.8 an hour and a half later, MD called to be made aware. Ordered procalcitonin and set of blood cultures x 2 stat. Last temp around 0400 was 100.1. Up with 2 assist to bedside commode, reported from day shift nurse. Patient did not get up this shift. Wound vac to abdomen intact. Dressing to left chest is intact from previous chest tube. Incontinent of stool at times. Lackey intact. 300 mls out this shift. Tylenol given at 0420. Left midline IV, saline locked. Right hand IV, saline locked. Poor appetite. Reposition q2 hours. Encourage incentive spirometer. On hazardous drug precautions. Patient is cooperative with cares. Follow up: Chest x-ray this am
[2016-06-04 05:20] LABS: BASOPHIL % 0.5 %; EOSINOPHIL # 0.1 K/uL (0.0-0.5); EOSINOPHIL % 0.6 %; HEMATOCRIT 29.9 % (33.0-46.0); HEMOGLOBIN 9.2 g/dL (10.0-15.0); IMMATURE GRANULOCYTE % 0.5 %; LYMPHOCYTE # 1.2 K/uL (0.8-4.0); LYMPHOCYTE % 14.5 %; MCH 27.6 pg (27.0-34.0); MCHC 30.8 gm/dL (32.0-36.5); MCV 89.8 fl (83.0-98.0); MONOCYTE # 1.1 K/uL (0.0-1.0); MONOCYTE % 12.6 %; MPV 9.2 fl (9.4-12.4); NEUTROPHIL # (ANC) 6.1 K/uL (1.8-7.8); NEUTROPHIL % 71.3 %; NRBC % 0 /100WBC (0-0.00); PLATELET COUNT 555 K/uL (150-450); RBC 3.33 M/uL (3.50-5.50); WBC 8.6 K/uL (4.0-11.0)
[2016-06-04 05:35] LABS: ANION GAP 11.6 (10.0-19.0); BLOOD UREA NITROGEN 18 mg/dL (6-24); CHLORIDE 110 mMol/L (96-110); CO2 25 mMol/L (22-32); CREATININE 0.8 mg/dL (0.5-1.1); ESTIMATED GFR (MDRD EQUATION) > 60; POTASSIUM 3.6 mMol/L (3.7-5.1); SODIUM 143 mMol/L (135-145)
--- NOTE | 2016-06-04 10:20 | NUR ---
Sandy with [facility] called and they can accept patient. I let her know patient was running a temp and we were trying to find the source. Will talk tomorrow. [phone] Updated Ivania Jose on discharge plans.
[2016-06-04 11:11] LABS: INR - (THERAPEUTIC) 1.39 (0.92-1.07); PROTIME 14.6 SECONDS (9.8-11.4)
[2016-06-04 12:29] LABS: BLOOD URINE 250 /UL (NEGATIVE); COLOR URINE YELLOW (YELLOW); GLUCOSE URINE NEGATIVE (NEGATIVE); KETONE URINE NEGATIVE (NEGATIVE); LEUKOCYTES URINE 500 /UL (NEGATIVE); NITRITE URINE POSITIVE (NEGATIVE); PROTEIN URINE 100 mg/dL (NEGATIVE); SPEC GRAVITY URINE 1.015 (1.003-1.035); TURBIDITY URINE 4+ (CLEAR); UROBILINOGEN URINE NORMAL (NORMAL)
[2016-06-04 12:45] LABS: WBC URINE PACKED FIELD #/HPF (NEGATIVE)
[2016-06-04 12:47] LABS: BACTERIA URINE MANY (NEGATIVE); MUCUS URINE 2+ (NEGATIVE); YEAST URINE MANY (NEGATIVE)
--- NOTE | 2016-06-04 14:30 | NUR ---
A-NUTRITION F/U STARTED RUNNING A TEMPERATURE. WOUND VAC TO ABD IN PLACE. (+)BS; HAVING SOME LOOSE STOOLS LABS: NA 143, K+ 3.6, GLU 88, BUN 18, TITLE AGENT 0.8, ALB 1.9 CONTINUES ON [place]ERON FOR APPETITE STIMULATION, PER CHART REVIEW DIET RX: REGULAR DIET W/ENSURE ENLIVE TID. PO INTAKE HAS BEEN REFUSALS-100%; WITH AVG BEING 49%. THIS IS AN IMPROVEMENT FROM 10-25% AT LAST F/U EST NUTR NEEDS: 4022-8270 KCALS AND 89-118 GM PROTEIN D-AT NUTRITION RISK W/INADEQUATE NUTRIENT INTAKE R/T DECREASED APPETITE, ALT GI FXN AEB INTAKE RECORDS, PT REPORT, GI SURGERY, LOOSE STOOLS. I-1)CONTINUE W/ENSURE ENLIVE TID 2)IF TF IS DESIRED, TF RECOMMENDATIONS HAVE BEEN MADE IN PREVIOUS NOTES M/E-GOAL: CONTINUED PO INTAKE IMPROVEMENT 1)F/U PO INTAKE, GI, AND POC IN 3-5 DAYS 2)ASSIST NEEDED
--- NOTE | 2016-06-04 17:15 | NUR ---
Significant event: Patient is alert and oriented. VSS, stable. B/p little low this morning at 92/57. FLuid bolus given was 129/83. And 126/71 afternoon assessment. Cath removed and replaced and UA obtained. Had CT of abd/pelvis this afternoon. Pt is weak today and refuses to eat much. Has been needing to assist with transfers due to weakness. Is on ACHS with sliding scale now. Lunch was 104 and supper was 88. Encouraged patient that she needed to try to eat something. Agreed to popsicile for now. Wound vac to abd, did do culture from there also today. Minimial drainage out. Has IV to right lower thumb area, and IV to left forearm. Midline to left upper arm. No fevers today. Had 2 loose/mushy stools, retested for C-diff and is negative. No complaints of pain. Cooperative with cares.
--- NOTE | 2016-06-05 05:17 | NUR ---
Significant Event: Patient alert and orineted X4. UP with 2person assist. Reposition every 2 hours as needed. Several loose BMs this shift. Lomotil given X2. [place] given around 1999, and tylenol given at 0400. [address] in place. Old chest tube site to L) chest. WOund vac to abdomen. MRSA positive, in contact isolation. C-diff negative. Patient BP was 96/65 and HR 114, notified and gave 1liter NS bolus. BP came up to 100/68, and HR in 120s, notified and gave am dose of amiodaroone, 500ml NS bolus and telemetry on. After bolus BP was 119/56 and HR in 130-140s and in A-fib and RVR per telemetry. notified and ordered to give AM dose of bystolic now. Continuing to monitor. Follow up: Monitor HR and BP
[2016-06-05 06:03] LABS: BASOPHIL % 0.4 %; EOSINOPHIL # 0.2 K/uL (0.0-0.5); EOSINOPHIL % 2.2 %; HEMATOCRIT 28.8 % (33.0-46.0); HEMOGLOBIN 8.8 g/dL (10.0-15.0); IMMATURE GRANULOCYTE # 0.1 K/uL (0.0-0.3); LYMPHOCYTE # 0.9 K/uL (0.8-4.0); MCH 27.8 pg (27.0-34.0); MCHC 30.6 gm/dL (32.0-36.5); MCV 90.9 fl (83.0-98.0); MONOCYTE # 0.8 K/uL (0.0-1.0); MONOCYTE % 10.5 %; NEUTROPHIL # (ANC) 5.2 K/uL (1.8-7.8); NEUTROPHIL % 72.9 %; NRBC % 0 /100WBC (0-0.00); PLATELET COUNT 495 K/uL (150-450); RBC 3.17 M/uL (3.50-5.50); RDW-CV 18.1 % (11.9-14.6); WBC 7.1 K/uL (4.0-11.0)
[2016-06-05 06:28] LABS: ALK PHOS 85 IU/L (33-138); ALT 12 IU/L (12-78); ANION GAP 12.2 (10.0-19.0); AST 25 IU/L (10-40); BLOOD UREA NITROGEN 14 mg/dL (6-24); CALCIUM 7.6 mg/dL (8.5-10.5); CHLORIDE 112 mMol/L (96-110); CO2 23 mMol/L (22-32); CREATININE 0.7 mg/dL (0.5-1.1); ESTIMATED GFR (MDRD EQUATION) > 60; POTASSIUM 3.2 mMol/L (3.7-5.1); SODIUM 144 mMol/L (135-145); TOTAL BILIRUBIN 0.6 mg/dL (0.0-1.5); TOTAL PROTEIN 5.7 g/dL (6.0-8.4)
[2016-06-05 06:29] LABS: ALBUMIN 1.7 gm/dL (3.5-5.0)
[2016-06-05 10:26] LABS: MAGNESIUM 1.4 mg/dL (1.8-2.6)
--- NOTE | 2016-06-05 10:35 | NUR ---
Reviewed chart and called and gave update of pt condition, urine culture and would culture to Melody, life care planner at [facility]. Will keep her updated as pt gets closer to time of discharge.
--- NOTE | 2016-06-05 17:24 | NUR ---
Significant Event: PT AO. BPs WERE RUNNING HYPOTENSIVE THIS AM BUT HAVE SINCE COME UP. TELEMETRY ON, CALLED AT 1700- PT RUNNING SINUS RHYTHM AGAIN. EKG DONE THIS AM, CARDIOLOGY CONSULTED. REMAINS IN HAZARDOUS DRUG PRECAUTIONS UNTIL TOMORROW AM. AC HS ACCUCHECKS, MILD SSI. IV TO R WRIST, IV L AC, MIDLINE MELANIE. CONTINUES ON IVF, IV ABX. TOTAL 80MEQ IV KCL AND 2GM IV MG GIVEN TODAY. TOLERATING DIET, ATE LATE BREAKFAST SO DID NOT EAT LUNCH. PRN ZOFRAN X1, PRN REGLAN X1, PRN LAMOTAL X1. PT/OT WORKING WITH. WOC RN SEEING FOR WOUND VAC TO ABDOMEN, INTACT. PT UP WITH 2PA, GAITBELT AND WALKER. MARISCAL HAD 250ML OUTPUT. DRESSING TO L CHEST WHERE CHEST TUBE HAD BEEN REMOVED, D/I. Follow up: MONITOR BPs, CONTACT ISOLATION FOR MRSE, BMs
--- NOTE | 2016-06-06 04:27 | NUR ---
Significant Event: Patient alert and orineted X4. Up with 1-2 person assist, walker and gait belt. Was hypotensive during day and in A-fib. No calls from telemetry tonight, and all blood pressures have been above 100. Patient states she is feeling better. Still weak. Ate 50% supper. Needs encouragement to eat/drink. Gave tylenol for 99.1 fever around 2200. Relief noted. Reposition often. Had 1 loose stool, gave lomotil. Chest tube site to L) chest C/D/I. WOund vac had 110 out. MRSA positive. IV to R) wrist with LARA running and to L) AC with LR running at 125ml. Received mag and K+ yesterday. Gave zofran X1 around 5. Follow up: Monitor vitals
[2016-06-06 06:26] LABS: ALK PHOS 78 IU/L (33-138); AST 20 IU/L (10-40); BLOOD UREA NITROGEN 13 mg/dL (6-24); CO2 22 mMol/L (22-32); CREATININE 0.7 mg/dL (0.5-1.1); ESTIMATED GFR (MDRD EQUATION) > 60; MAGNESIUM 1.7 mg/dL (1.8-2.6); POTASSIUM 3.7 mMol/L (3.7-5.1); TOTAL PROTEIN 5.5 g/dL (6.0-8.4)
[2016-06-06 06:28] LABS: ALBUMIN 1.5 gm/dL (3.5-5.0); ALT < 10 IU/L (12-78); ANION GAP 12.7 (10.0-19.0); CALCIUM 7.4 mg/dL (8.5-10.5); CHLORIDE 116 mMol/L (96-110); SODIUM 147 mMol/L (135-145); TOTAL BILIRUBIN 0.4 mg/dL (0.0-1.5)
[2016-06-06 07:06] LABS: BASOPHIL % 0.5 %; EOSINOPHIL # 0.1 K/uL (0.0-0.5); EOSINOPHIL % 1.8 %; HEMATOCRIT 27.4 % (33.0-46.0); HEMOGLOBIN 8.7 g/dL (10.0-15.0); IMMATURE GRANULOCYTE # 0.1 K/uL (0.0-0.3); IMMATURE GRANULOCYTE % 1.9 %; LYMPHOCYTE # 1.3 K/uL (0.8-4.0); LYMPHOCYTE % 17.8 %; MCH 28.6 pg (27.0-34.0); MCHC 31.8 gm/dL (32.0-36.5); MCV 90.1 fl (83.0-98.0); MONOCYTE # 0.7 K/uL (0.0-1.0); MONOCYTE % 9.4 %; MPV 9.3 fl (9.4-12.4); NEUTROPHIL % 68.6 %; NRBC % 0 /100WBC (0-0.00); PLATELET COUNT 494 K/uL (150-450); RBC 3.04 M/uL (3.50-5.50); RDW-CV 18.4 % (11.9-14.6); WBC 7.3 K/uL (4.0-11.0)
--- NOTE | 2016-06-06 13:15 | NUR ---
Ivania Jose called and stated patient could go to [facility] tomorrow if they can still accept. We discussed transportation and agreed on ambulance. 1350 Introduced self/role to patient. Talked about possible dismissal tomorrow. I would line up an ambulance. Not certain they can take tomorrow so will follow up with her once I know more. Wrote my name on her marker board.
--- NOTE | 2016-06-06 17:37 | NUR ---
Significant Event: Patient up in chair throughout the day repositioned as needed or requested. Up to bedside commode. Had a total of 3 small semiformed stools today. Denies pain. Wound vac changed by [facility] nurse. Patient given 2 grams of magnesium IV per orders. Lab called regarding positive MRSA swab taken from abdomen on 06/04/16. notified and patient now on rocephin daily IV for 5 days and also doxycycline BID PO for 5 days. Heparin discontinued and eliquis restarted. Chest tube dressing clean, dry, and intact. IV fluids were saline locked. Follow up: Continue to monitor.
--- NOTE | 2016-06-06 17:51 | NUR ---
I HAVE REVIEWED AND AGREE WITH CHARTING DONE BY SN KASEY.
[2016-06-07 05:04] LABS: ANION GAP 10.4 (10.0-19.0); BLOOD UREA NITROGEN 11 mg/dL (6-24); CALCIUM 7.6 mg/dL (8.5-10.5); CHLORIDE 114 mMol/L (96-110); CO2 25 mMol/L (22-32); CREATININE 0.7 mg/dL (0.5-1.1); ESTIMATED GFR (MDRD EQUATION) > 60; MAGNESIUM 2.1 mg/dL (1.8-2.6); POTASSIUM 3.4 mMol/L (3.7-5.1)
--- NOTE | 2016-06-07 05:05 | NUR ---
Significant Event: Patient alert and oriented X4. Wound vac to abdomen, MRSA positive, in contact isolation. 1-2 person assist with walker and gait belt. Still having loose stools X1. Lomotil given with bed time meds. Vitals stable and on room air. Telemetry on with no calls. IV to R) wrist and L) forearm saline locked. Mobile given with bed time meds also. Wound vac dressing changed yesterday. Working with PT/OT. Old chest tube site clean/dry/intact. Received 2gm magnesium yesterday. Possible D/C to [facility] today. Repo often. Follow up: Monitor loose stools
[2016-06-07 05:08] LABS: SODIUM 146 mMol/L (135-145)
--- NOTE | 2016-06-07 10:55 | NUR ---
Called [facility] and spoke to Lali, can patient come today? She will have Sandy call me back. 1150 Sandy called and they can accept today. 1152 Called [facility] and talked to Lori. Let her know patient could go and going to shot for 1400 discharge. 1210 Called EMS and spoke to Patricia. She will get back to me. Gave doc to doc number to [facility] #[phone]. 1240 Ivania called and we need to know if we are to cap the wound vac or change to wet to dry? 1245 Spoke to Sandy at [facility], cap it. Called Cori with [facility]. They will come up and ammend the orders. 1255 Patricia called and wanted to know if we can move up the discharge time because Jac[facility] will be here in about 20 minutes? Spoke to Ivania Jade, charge, patients nurse, [facility] and everyone said that was fine. Called back Patricia and said yes. Co-worker Yudith Varela faxed orders to [facility], gave nurse to nurse number to Elvi.
--- NOTE | 2016-06-07 13:13 | NUR ---
Significant Event: Pt is alert and oriented. Wound vac was changed yesterday. Sponge/drsg/tubing capped and intact for transfer. Pt refused pain medication today. Lackey patent 200ml. Amb with walker/gait belt and 1-2 assist. Chest tube removed from left lung on Friday. Pt has 2 saline locks in her left arm, upper arm is a midline. Pt having loose stools yesterday, none today. VS 127/73, 83-22-98.1-99%.
--- NOTE | 2016-06-07 13:30 | NUR ---
Assisted PIPPA Christie with final discharge paperwork on patient. Gave patient's nurse GONSALO Boles the nurse to nurse number at [phone] and asked her to call the charge nurse Barrie at [facility]. Faxed patient's final discharge orders to Barrie at [phone]. Let [facility] Charge NurseKimberly know that this was completed.
== END 2016-06-07 13:49 | disposition swing bed (61) | DRG 907 ==
LOC: GMED 15:35 → GMSU 16:35 → GICU 16:35 → GMSU 16:35 → GICU 05-13 09:51 → GMSU 05-14 17:02
PROVIDERS: Anesthesiology; Family Medicine; Hospitalist; Internal Medicine; Nurse Practitioner; Nurse Practitioner Family; Physician Assistant; Surgery; Thoracic Surgery (Cardiothoracic Vascular Surgery); ADMIT Internal Medicine
PROC: B440ZZ3 Ultrasonography of Abdominal Aorta, Intravascular (ICD-10-PCS; principal; 2016-05-06)
PROC: 04V43DZ Restriction of Splenic Artery with Intraluminal Device, Percutaneous Approach (ICD-10-PCS; principal; 2016-05-06)
PROC: B44KZZ3 Ultrasonography of Celiac and Mesenteric Arteries, Intravascular (ICD-10-PCS; principal; 2016-05-06)
PROC: B444ZZ3 Ultrasonography of Superior Mesenteric Artery, Intravascular (ICD-10-PCS; principal; 2016-05-06)
PROC: 30233N1 Transfusion of Nonautologous Red Blood Cells into Peripheral Vein, Percutaneous Approach (ICD-10-PCS; 2016-05-07)
PROC: 30233N1 Transfusion of Nonautologous Red Blood Cells into Peripheral Vein, Percutaneous Approach (ICD-10-PCS; 2016-05-08)
PROC: 0W9B3ZZ Drainage of Left Pleural Cavity, Percutaneous Approach (ICD-10-PCS; 2016-05-12)
PROC: 02HV33Z Insertion of Infusion Device into Superior Vena Cava, Percutaneous Approach (ICD-10-PCS; 2016-05-16)
PROC: 05H633Z Insertion of Infusion Device into Left Subclavian Vein, Percutaneous Approach (ICD-10-PCS; 2016-05-16)
PROC: 03HY33Z Insertion of Infusion Device into Upper Artery, Percutaneous Approach (ICD-10-PCS; 2016-05-16)
PROC: 30233N1 Transfusion of Nonautologous Red Blood Cells into Peripheral Vein, Percutaneous Approach (ICD-10-PCS; 2016-05-18)
PROC: 0W9B3ZZ Drainage of Left Pleural Cavity, Percutaneous Approach (ICD-10-PCS; 2016-05-18)
PROC: 0W9B40Z Drainage of Left Pleural Cavity with Drainage Device, Percutaneous Endoscopic Approach (ICD-10-PCS; 2016-05-20)
DX: T81.19XA Other postprocedural shock, initial encounter (principal); J96.01 Acute respiratory failure with hypoxia; E43 Unspecified severe protein-calorie malnutrition; A41.9 Sepsis, unspecified organism; J90 Pleural effusion, not elsewhere classified; J94.2 Hemothorax; E87.2 Acidosis; N17.9 Acute kidney failure, unspecified; J18.1 Lobar pneumonia, unspecified organism; T81.4XXA Infection following a procedure, initial encounter; D62 Acute posthemorrhagic anemia; T81.31XA Disruption of external operation (surgical) wound, not elsewhere classified, initial encounter; F11.20 Opioid dependence, uncomplicated; N30.00 Acute cystitis without hematuria; T83.511A Infection and inflammatory reaction due to indwelling urethral catheter, initial encounter; D73.5 Infarction of spleen; I95.9 Hypotension, unspecified; B96.1 Klebsiella pneumoniae [K. pneumoniae] as the cause of diseases classified elsewhere; A49.02 Methicillin resistant Staphylococcus aureus infection, unspecified site; I48.0 Paroxysmal atrial fibrillation; E87.6 Hypokalemia; I10 Essential (primary) hypertension; R19.7 Diarrhea, unspecified; R53.1 Weakness; G40.909 Epilepsy, unspecified, not intractable, without status epilepticus; E03.9 Hypothyroidism, unspecified; Z86.711 Personal history of pulmonary embolism; Z79.01 Long term (current) use of anticoagulants; Z96.651 Presence of right artificial knee joint; E87.5 Hyperkalemia; I27.2 Other secondary pulmonary hypertension; Y83.2 Surgical operation with anastomosis, bypass or graft as the cause of abnormal reaction of the patient, or of later complication, without mention of misadventure at the time of the procedure; Z23 Encounter for immunization; Z68.32 Body mass index [BMI] 32.0-32.9, adult; E87.70 Fluid overload, unspecified; Y84.6 Urinary catheterization as the cause of abnormal reaction of the patient, or of later complication, without mention of misadventure at the time of the procedure; E83.42 Hypomagnesemia
CPT/HCPCS: C1751; C1760; C1769; C1887; C1894; C9113; G0009; G0237; G0424; J0131; J0360; J0610; J0690; J0692; J0696; J1100; J1170; J1644; J1940; J1953; J2001; J2020; J2405; J2543; J2765; J3010; J3370; J3475; J3480; J7030; J7040; J7050; J7060; J7120; P9016; P9045; P9047; Q9967

== ENCOUNTER → 2016-05-06 | Outpatient (CLI) | payer MEDICARE, OTHER, MEDICAID ==
[~2016-05-06] MED LIST: BYSTOLIC5 MG PO; CALCIUM 600 +1 EAC3 PO; COLACE100 MG PO; CORDARONE,PACE200 MG PO; DEXILANT60 MG PO; ELIQUIS5 MG PO; HYDRODIURIL25 MG PO; KEPPRA500 MG PO; LEVOTHROID (SY50 MCG PO; NEURONTIN600 MG PO; NORCO 5-325 TA1 EACH PO; OXYBUTYNIN CHLOR5 M1 PO
== END | disposition disaster alternative care site (69) ==
LOC: GAIR 15:25
DX: R10.11 Right upper quadrant pain (principal); R10.32 Left lower quadrant pain; Z79.52 Long term (current) use of systemic steroids; Z79.891 Long term (current) use of opiate analgesic; Z79.899 Other long term (current) drug therapy
CPT/HCPCS: A0422; A0431; A0436